=== PATIENT | female | born 1955 | race Caucasian/White ===

== ENCOUNTER 2019-07-04 16:09 | Inpatient (IN) ==
[2019-07-04] MEDS ORDERED: Isovue-370 500 ML BOTTLE IVP ONE ×4 (16:28→17:21)
[2019-07-04] MEDS ORDERED: *HR* FentaNYL (PF) 100 MCG/2 ML VIAL IVP ONE (18:14)
--- NOTE | 2019-07-04 18:24 | Emergency Department Note ---
Disposition Clinical Impression: Femoral artery pseudo-aneurysm, right, Occlusion of right femoral artery Disposition: Admitted As Inpatient Condition: Fair Time of Disposition: 19:45 General Adult HPI - General Chief complaint: ED Extremity Injury, Lower Stated complaint: "dvt" Time Seen by Provider: 07/04/19 16:12 Source: patient, EMS Mode of arrival: EMS Limitations: no limitations Nursing Notes Reviewed: Yes Vital Signs Reviewed: Yes - History of Present Illness HPI Narrative: 63F who is currently a patient of Dr. Kruger as she has extensive vascular history presents to the emergency department with concerns for acute embolism in her right lower extremity. Patient states she was feeling fine today until she suddenly had numbness and pain of her right lower extremity. She has a known femoral aneurysm and is awaiting surgery on this. She has also had femorofemoral bypass surgery. She was seen in an outside hospital who did basic lab work on her and transferred her here for further vascular evaluation. Patient still has numbness of her right lower extremity. She is able to move her leg but this causes her pain. Pain Scale: 4 - Related Data Home Medications Medication Instructions Recorded Confirmed Ezetimibe [Zetia] 10 mg PO QPM 08/02/16 07/04/19 Gabapentin [Neurontin] 600 mg PO TID 08/02/16 07/04/19 Loratadine [Allergy Relief] 10 mg PO DAILY 08/02/16 07/04/19 Rivaroxaban [Xarelto] 20 mg PO QPM 08/02/16 07/04/19 SUMAtriptan Succinate [Imitrex] 100 mg PO DAILY PRN 08/28/17 07/04/19 Oxybutynin [Ditropan] 5 mg PO BID 11/11/18 07/04/19 Aspirin [Lo-Dose Aspirin EC] 81 mg PO QPM 07/04/19 07/04/19 Calcium Carbonate/Vitamin D3 1 each PO BID 07/04/19 07/04/19 [Calcium 600 + Vit D Tablet] Previous Rx's Medication Instructions Recorded Tamoxifen Citrate 20 mg PO DAILY #30 tab 02/22/19 Allergies Allergy/AdvReac Type Severity Reaction Status Date / Time meperidine [From Demerol] AdvReac Nausea Verified 07/04/19 19:23 All systems ED: reviewed and negative except as stated. Review of Systems: As Per HPI Constitutional: Denies: fever, chills, weakness Cardiovascular: Denies: chest pain, palpitations, dyspnea on exertion Respiratory: Denies: cough, dyspnea, wheezes Gastrointestinal: Denies: abdominal pain, nausea, vomiting Musculoskeletal: Reports: other (Right lower extremity numbness). Denies: back pain, neck pain Past Medical History - Past Medical History Attestation: Yes The following information was validated with the patient. Source: patient Medical history: Reports: asthma, DVT, hyperlipidemia, migraine Surgical history: Reports: cholecystectomy Psychiatric history: Reports: no psych history - Social History Smoking Status: Never smoker Alcohol use: Reports: occasionally Drug use: Reports: none Physical Exam - General Limitations: no limitations General appearance: alert, in no apparent distress - Head Head exam: atraumatic, normocephalic - Eye Eye exam: Present: normal appearance, EOMI - Chest Chest inspection: Present: normal inspection. Absent: tenderness, rash - Respiratory Respiratory exam: Present: normal lung sounds bilaterally. Absent: wheezes - Cardiovascular Cardiovascular exam: Present: regular rate, normal rhythm - Abdominal Exam Abdominal exam: Present: soft, Non-Tender. Absent: distention, guarding, bear ound, rigidity - Extremities Exam Extremities exam: Present: other (Right lower extremity is cool to touch when compared to left lower shortly. Dorsalis pedis and posterior tibial pulses are not detected via Doppler. The popliteal artery has a monophasic waveform. Patient is able to wiggle her toes and does have delayed capillary refill.) - Neurological Exam Neurological exam: Present: alert, oriented X3 - Psychiatric Psychiatric exam: Present: normal affect, normal mood - Skin Skin exam: Present: warm, dry, intact Course Vital Signs Temperature 98.1 F 07/04/19 16:17 Pulse Rate 76 07/04/19 16:17 Respiratory Rate 17 07/04/19 16:17 Blood Pressure 152/99 07/04/19 16:17 O2 Sat by Pulse Oximetry 97 07/04/19 16:17 Temperature 98.1 F 07/04/19 16:17 Pulse Rate 70 07/04/19 18:32 Respiratory Rate 17 07/04/19 18:32 Blood Pressure 142/81 07/04/19 18:32 O2 Sat by Pulse Oximetry 98 07/04/19 18:32 Oxygen Delivery Oxygen Delivery Room Air Medical Decision Making - [facility] Narrative Medical decision making narrative: Patient presents as a transfer from an outside facility with concerns for possible embolism in her right lower extremity. Lab work obtained at previous hospital showed a normal CMP, PT of 15.4, INR of 1.3, and a normal CBC. We will obtain a CTA of the bilateral lower extremities and consult with our vascular surgeon. 1729 - spoke with Dr. Alvarez is requesting a CT aortogram with runoff. Unfortunately the patient has guarding on to CAT scan and had the CTA of the right lower extremity performed and cannot receive any more contrast at this time. 1844 - spoke with Dr. Saini from [facility] radiology who states patient has a new femorofemoral bypass and common femoral occlusion. Dr. Alvarez has been paged again to discuss these results. 1931 - Spoke with Dr. Alvarez who states the pt will likely need to go to surgery tomorrow but she does still have some blood flow to the right lower shortly and does not need to go emergently tonight. He states she needs to have her Xarelto held and be converted over to heparin. She also needs a cardiology consult as she had an abnormal stress test. He suggests admission to the hospital with consultation to vascular and cardiology and to have the patient be placed nothing by mouth after midnight therefore she could not possibly have surgery in the morning. 1944 - pt was accepted by Dr. Mcnulty - Medical Records Medical records reviewed: Yes I reviewed the patient's medical records. - Lab Data Lab results reviewed: Yes I reviewed the patient's lab results. Result diagrams: 07/04/19 20:08 - Radiology Data Radiology results reviewed: Yes I reviewed the patient's radiology results. Attestation Statement - Attestation Attestation: I, Juan Fowler, examined this patient and my medical decision-making was reviewed with the DEALER SUPPORT TECHNICIAN/PA/Advanced Practice Nurse/Resident Physician. I agree with the d ocumented findings, disposition and treatment plan as described except to the extent set forth below. 63-year-old female presents emergency department from [place] emergency department for further evaluation of right lower extremity pain and paresthesias. Patient has a history of arterial occlusion. She has a femorofemoral bypass and apparently has a right femoral artery aneurysm which is being evaluated by Dr. Kruger. Patient states around 4 hours prior to arrival she developed pain to the right lower extremity. It was acute in onset, she feels the right lower extremity is cold or the left. She has had similar arterial occlusions in the past. Patient denies recent trauma. There is no recent chest pain, shortness of breath, abdominal pain. Patient does have a history of abnormal stress test and she states that she was scheduled for a heart catheterization within the next 2 weeks. Patient does not have a dopplerable pulse on the right dorsalis pedis or posterior tibial. There is a faint monophasic pulse in the right popliteal region. Left lower extremity has palpable pulses in the dorsalis pedis and the posterior tibial areas. The vascular surgeon was contacted immediately after the patient's initial arrival. We obtained a CT angiograms of the right and left lower extremity as well as TRUMAN of the right lower extremity. Patient has severe disease present with TRUMAN. CT shows occlusion of the major vasculature however she does have collateral flow. We again spoke with the vascular surgeon, Dr. Alvarez, who recommended heparin and admission to the hospitalist for further evaluation. Patient is on Xarelto however her last dose was last night and she will be started on heparin right now in the emergency department. Patient is comfortable with this plan of act ion.
[2019-07-04] MEDS ORDERED: *HR* Heparin 5,000 UNIT/ML VIAL IVP ONE (19:49)
[2019-07-04] MEDS ORDERED: *HR* Heparin 5,000 UNIT/ML VIAL IVP PRN (19:49)
[2019-07-04] MEDS: Heparin 25,000 UNIT/250 ML D5W 25,000 UNIT/250 ML IV.SOLN IVC SCH (20:19)
[2019-07-04 20:36] LABS: Hematocrit 39.9 % (35.3-44.9); Hemoglobin 12.3 g/dL (11.5-15.4); Mean Corpuscular HGB Conc 30.8 g/dL (31.6-35.5); Mean Corpuscular Hemoglobin 24.2 pg (28.0-33.3); Mean Corpuscular Volume 78.5 fL (83.0-100.0); Mean Platelet Volume 9.3 fL (9.4-12.4); Platelet Count 185 K/mcL (140-400); Red Blood Count 5.08 M/mcL (3.82-4.97); Red Cell Distribution Width 16.2 % (11.5-14.5)
[2019-07-04] MEDS ORDERED: Naloxone 0.4 MG/ML INJ IVP PRN (20:44)
[2019-07-04 20:47] LABS: Heparin anti-factor XA UFH 0.61 IU/mL (0.30-0.70)
[2019-07-04 20:48] LABS: INR 1.1; Prothrombin Time 12.9 Seconds (9.4-12.1)
--- NOTE | 2019-07-04 20:59 | Internal Med History&Physical ---
Date of Encounter: 07/04/19 Time of Encounter: 21:10 Internal Medicine - H&P: HPI Chief complaint: Left lower extremity arterial occlusion Admitted From: Emergency Dept Plans for Post Hospital Care: Home History of present illness: Ms. Lynch is a 63 year old female Patient presented emergency department with pain in her right leg. She states that she had been sitting on the couch earlier in the day, playing games on the phone and petting her dog and cat. After a period time, she got up to walk her dog and she had immediate pain in her right leg. She tried to go walk her dog but says that she could barely make it across the street. She contacted her daughter so that she could be driven to the hospital. She had initially presented to [facility], and had labs performed. She was transferred to [facility] emergency department for further imaging. Emergency department vitals signs: Temperature 98.1, pulse 76, respiratory rate 17, blood pressure 152/99, O2 saturation 97% on room air. [place] labs: CBC: White count 5.4, hemoglobin 12.6, hematocrit 39, platelets 201 CMP: Sodium 138, potassium 4.0, chloride 106, carbon dioxide 21, BUN 13, creatinine 0.91, glucose 116 AST 22 ALT 21 Alkaline phosphatase 51 PTT 30.6 PT 15.4 INR 1.3 [place] labs: CBC: White count 6.0, hemoglobin 12.3, hematocrit 39.9, platelets 185 INR 1.1 PT 12.9 Heparin X a 0.61 Troponin undetectable TRUMAN was completed showed severe arterial disease, 0.39 in the right lower extremity and left lower extremity was normal at 1.16. Right lower extremity CT angiogram: 1010 bypass graft and right common femoral artery occlusion, unchanged right common iliac pseudoaneurysm. The left lower extremity showed full patency. Prior to transfer, patient received 30 mg of ketorolac. She also has a history of abnormal stress test, and will need cardiology clearance. [facility] emergency department contacted Dr. Alvarez, he stated that patient will likely need to go to surgery, but no emergent procedure necessary at this time. The patient had been on Xarelto for history of blood clots in her legs. Her last dose was in the morning. She will be started on heparin drip.due to patient's abnormal stress test, she will need to be evaluated by cardiology prior to surgery. Upon my evaluation, patient is resting comfortably in hospital bed in no acute distress. Her family is at bedside. She denies chest pain, abdominal pain, nausea, vomiting, diarrhea and constipation. She has had occasional chest discomfort over the last few weeks. Her stress test was performed approximately 5 days ago. The stress test showed positive ischemia, small sized reversible perfusion defect. She was scheduled to have a cardiac catheter performed this coming week. Patient denies history of diabetes, smoking, alcohol and other drug use. She does have a history of breast cancer, and is currently on tamoxifen. She is a full code. She denies significant family medical history. Past Med Surg Social Fam HX - Past Medical History Medical history: asthma, DVT, hyperlipidemia, migraine Additional medical history: Breast Ca Psychiatric history: no psych history - Past Surgical History Surgical History: cholecystectomy Additional surgical history: left shoulder scope. fem fem bypass. double mastectomy. skin graft left arm - Social History Smoking Status: Never smoker Alcohol use: occasionally Drug use: none Internal Medicine - H&P: Meds Ezetimibe [Zetia] 10 mg PO QPM 08/02/16 [History] Gabapentin [Neurontin] 600 mg PO TID 08/02/16 [History] Loratadine [Allergy Relief] 10 mg PO DAILY 08/02/16 [History] Rivaroxaban [Xarelto] 20 mg PO QPM 08/02/16 [History] SUMAtriptan Succinate [Imitrex] 100 mg PO DAILY PRN 08/28/17 [History] Oxybutynin [Ditropan] 5 mg PO BID 11/11/18 [History] Tamoxifen Citrate 20 mg PO DAILY #30 tab 02/22/19 [Rx] Aspirin [Lo-Dose Aspirin EC] 81 mg PO QPM 07/04/19 [History] Calcium Carbonate/Vitamin D3 [Calcium 600 + Vit D Tablet] 1 each PO BID 07/04/19 [History] Allergy/AdvReac Type Severity Reaction Status Date / Time meperidine [From Demerol] AdvReac Nausea Verified 07/04/19 19:23 All Systems PM: A 10-system review of systems was performed and is negative for pertinent find ings except as documented above in the HPI. - Constitutional Vitals: Temp Pulse Resp BP Pulse Ox 98.5 F 86 20 167/81 97 07/04/19 20:33 07/04/19 19:22 07/04/19 20:33 07/04/19 20:33 07/04/19 19:22 General appearance: Present: cooperative, A&O X 3, pleasant, no acute distress, answers questions appropriately Exam: - - Head Head exam: Present: normal inspection - Eye Eye exam: Present: EOMI, normal appearance - Respiratory Respiratory exam: Present: CTAB. Absent: rales, respiratory distress, rhonchi, wheezes - Cardiovascular Cardiovascular exam: Present: RRR. Absent: diastolic murmur, systolic murmur - GI/Abdominal GI/Abdominal exam: Present: normal bowel sounds, soft. Absent: tenderness - Extremities Exam Extremities exam: Present: radial pulses palpable and symmetrical. Absent: pedal edema, tenderness, warm Additional comments: Left lower extremity warm compared to right lower extremity which feels cold to the touch. Not cyanotic, minimal pulse felt in right lower extremity compared to left. Normal sensation, normal range of motion in both lower extremities. - Neurological Exam Neurological exam: Present: no focal deficits, strengths equal and symetr throughout. Absent: motor sensory deficit, facial droop, speech deficit - Skin Skin exam: Present: dry, normal color, warm Internal Med - H&P Results - Labs CBC & Chem 7: 07/04/19 20:08 Labs: Short CBC 07/04/19 Range/Units 20:08 WBC 6.0 (4.3-11.1) K/mcL Hgb 12.3 (11.5-15.4) g/dL Hct 39.9 (35.3-44.9) % Plt Count 185 (140-400) K/mcL Cardiac Enzymes 07/04/19 Range/Units 20:08 Troponin I < 0.03 (< 0.04) ng/mL - Impressions ITS Impressions Lower Extremity CTA 07/04/19 18:21 IMPRESSION: Fem-fem bypass graft and right common femoral artery occlusion, new since May. Unchanged right common iliac pseudoaneurysm. D/ / 07/04/2019 18:47:59 Janes Russo MD / erinrtvictor manuel Interpreting Provider: Janes Russo MD Lower Extremity CTA 07/04/19 18:21 IMPRESSION: Fem-fem bypass graft and right common femoral artery occlusion, new since May. Unchanged right common iliac pseudoaneurysm. D/ / 07/04/2019 18:47:59 Janes Russo MD / leslye Interpreting Provider: Janes Russo MD - Assessment and Plan (1) Occlusion of right femoral artery Current Visit: Yes Status: Acute Assessment and plan: As seen on CT angiogram of the right lower extremity. Patient has a femorofemoral bypass graft and right common femoral artery occlusion that is new since May. Dr. Alvarez was consulted by the emergency department. Will see the patient in the morning. Nothing by mouth after midnight Heparin drip Cardiology consult Cardiac telemetry Repeat a.m. labs Pain management as needed Follow-up vascular surgery recommendations Follow-up cardiology recommendations (2) Abnormal stress test Current Visit: Yes Status: Acute Assessment and plan: Stress test performed on June 30, 2019: Impression: Perfusion imaging was positive for ischemia. There is a small sized reversible perfusion defect which is mild in intensity in the mid and basal inferior segments. SDS = 2 Pharmacologic stress ECG is borderline for ischemia in leads II, III, aVF, V4-V6. The patient demonstrated a blunted blood pressure response. Gated EF > 70%. Cardiology consult in the morning Nothing by mouth after midnight Cardiac monitoring Initial troponin undetectable, repeat troponin in the morning. Patient denies chest pain EKG in the morning (3) Invasive lobular carcinoma of left breast, stage 2 Current Visit: No Status: Acute Assessment and plan: Continue home meds (4) DVT prophylaxis Current Visit: Yes Status: Acute Assessment and plan: Patient on heparin drip. Hold home Xarelto - Time Spent With Patient Total time spent is greater than 50% in coordination of care (as documented) at patient's floor/unit and/or counseling patient:
[2019-07-05 04:15] LABS: Hematocrit 37.8 % (35.3-44.9); Hemoglobin 11.6 g/dL (11.5-15.4); Mean Corpuscular HGB Conc 30.7 g/dL (31.6-35.5); Mean Corpuscular Hemoglobin 24.6 pg (28.0-33.3); Mean Corpuscular Volume 80.3 fL (83.0-100.0); Mean Platelet Volume 9.8 fL (9.4-12.4); Platelet Count 168 K/mcL (140-400); Red Blood Count 4.71 M/mcL (3.82-4.97); Red Cell Distribution Width 16.5 % (11.5-14.5); White Blood Count 5.2 K/mcL (4.3-11.1)
[2019-07-05 04:34] LABS: Alanine Aminotransferase 16 Units/L (7-52); Albumin 3.4 g/dL (3.5-5.7); Albumin/Globulin Ratio 1.4 (1.1-2.2); Alkaline Phosphatase 44 Units/L (34-104); Aspartate Amino Transferase 16 Units/L (13-39); BUN/Creatinine Ratio 19 (6-26); Bilirubin,Total 0.2 mg/dL (0.3-1.0); Blood Urea Nitrogen 17 mg/dL (8-23); Calcium 8.4 mg/dL (8.6-10.3); Carbon Dioxide 23 mEq/L (23-29); Chloride 110 mEq/L (98-107); Globulin 2.4 g/dL (2.4-3.5); Glucose 122 mg/dL (70-105); Osmolality,Calculated 291 (280-300); Phosphorous 4.1 mg/dL (2.7-4.5); Potassium 3.9 mEq/L (3.5-5.1); Sodium 139 mEq/L (136-145); Total Protein 5.8 g/dL (6.4-8.9); eGFR For African Americans > 60 (> 60); eGFR For Non-African Americans > 60 (> 60)
--- NOTE | 2019-07-05 08:15 | Internal Med Progress Note ---
Hospitalist Progress Note - Encounter Date of Encounter: 07/05/19 Time of Encounter: 08:15 - Subjective Interval History: Patient lying comfortably in bed, denies acute overnight events. At rest denies any leg pain, numbness/tingling, or color changes to leg. Can still move leg/toes. She says pain began rather intensely and suddenly last night prompting ER visit. She says had a stress test last which was abnormal for which [facility] planned for next week. - Exam Vitals: Temp Pulse Resp BP Pulse Ox 98.1 F 59 18 149/86 97 07/05/19 07:03 07/05/19 07:03 07/05/19 07:03 07/05/19 07:03 07/05/19 07:03 Exam: General: NAD, good eye contact, well appearing Thoracic: Normal breath sounds b/l, no wheezing or crackles Cardio: Normal S1 and S2, regular rate and rhythm, no murmurs Abdomen: Soft, nontender, nondistended, obese Extremities: Warm. DP pulses 2+ LLE, not palpable on RLE. Does have pitting edema through b/l legs. Notably, significantly decreased radial pulse LUE Skin: Intact. No rashes, bruises, or ulcers Neuro: Awake, fully oriented. Speech fluent - Summary of Assessment and Plan Summary of Assessment and Plan: Ellen Lynch is a 63 F w hx PAD s/p fem-fem bypass, DVT on AC, CAD, HLD, BrCa on tamoxifen, who p/w RLE pain, CTA RLE showing new R common fem arterial occlusion. Occlusion of R fem artery: seen on CTA, diminished but not absent TRUMAN, and pulses faint but present on doppler, without cyanosis - VascSurg consulted - hep gtt - pain control as needed to include home gabapentin 600 tid - home ASA - not on statin but takes zetia CAD/HLD: abnormal stress test - Cardio consulted; rec proceed with any emergency surgery if needed, and otherwise can pursue inpatient [facility] if vascular surgery is not emergent Breast cancer: home tamoxifen DVT: holding AC and using hep gtt Obesity: BMI 36 PPx: hep gtt, holding home xarelto Tele: yes Activity: up ad tommy FEN: NPO, no MIVF Lines: PIV Consults: Cardio, VascSurg Code: Full Dispo: patient requires inpatient eval and management at this time, anticipate 2-3 days, will be homegoing Internal Medicine: Result - Labs CBC & Chem 7: 07/05/19 04:03 07/05/19 04:03 Labs: Short CBC 07/04/19 07/05/19 Range/Units 20:08 04:03 WBC 6.0 5.2 (4.3-11.1) K/mcL Hgb 12.3 11.6 (11.5-15.4) g/dL Hct 39.9 37.8 (35.3-44.9) % Plt Count 185 168 (140-400) K/mcL BMP 07/05/19 04:03 Sodium 139 Potassium 3.9 Chloride 110 H Carbon Dioxide 23 BUN 17 Creatinine 0.89 Glucose 122 H Calcium 8.4 L Cardiac Enzymes 07/04/19 07/05/19 Range/Units 20:08 04:03 Troponin I < 0.03 < 0.03 (< 0.04) ng/mL Liver Function 07/05/19 Range/Units 04:03 Total Bilirubin 0.2 L (0.3-1.0) mg/dL AST 16 (13-39) Units/L ALT 16 (7-52) Units/L Alkaline Phosphatase 44 (34-104) Units/L Albumin 3.4 L (3.5-5.7) g/dL - ABG Interpretation ABG results: PT/INR, D-dimer PT 12.9 Seconds (9.4-12.1) H 07/04/19 20:08 - Impressions Impressions Lower Extremity CTA 07/04/19 18:21 IMPRESSION: Fem-fem bypass graft and right common femoral artery occlusion, new since May. Unchanged right common iliac pseudoaneurysm. D/ / 07/04/2019 18:47:59 Janes Russo MD / leslye Interpreting Provider: Janes Russo MD Lower Extremity CTA 07/04/19 18:21 IMPRESSION: Fem-fem bypass graft and right common femoral artery occlusion, new since May. Unchanged right common iliac pseudoaneurysm. D/ / 07/04/2019 18:47:59 Janes Russo MD / leslye Interpreting Provider: Janes Russo MD Consult Discharge Plan - Plan Referrals: Bernie Roberts, DEVELOPMENT CHEMIST [Primary Care Provider] -
--- NOTE | 2019-07-05 10:49 | Cardiology Consult Note ---
<CorneliusMirtaKeila J - Last Filed: 07/05/19 10:35> Date of Encounter: 07/05/19 Time of Encounter: 09:00 Assessment and Plan (1) Preop cardiovascular exam Current Visit: Yes Status: Acute Per cardiology: -Preop risk assessment for vascular surgery. -Stress test 06/30/19 with small sized, reversible perfusion defect, which is mild in intensity in mid and basal inferior segments, borderline ECG changes with pharmacologic stress. -No recent TTE. -ECG with SR. No acute ischemic changes noted. -No previous LHC. Was planned for outpatient LHC for preop. -Reports atypical chest pain symptoms. -Poor functional capacity, unable to achieve 4 METs. -Discussed and reviewed with , if surgery is emergent, would recommend proceeding with surgery with the knowledge of increased risk of cardiovascular complications in the anny-operative time frame. If surgery can be delayed, can consider [facility] inpatient. Discussed and reviewed with patient and family. -Will check TTE. (2) Abnormal stress test Current Visit: Yes Status: Acute Per cardiology: -Known abnormal stress test. -See preop cardiovascular exam. Discussion w patient/family: The assessment and plan as outlined above was discussed with the patient and/or family members who expressed understanding and agreement. All questions were answered. Thank you for involving us in the care of your patient. Please call with any questions. Discussed and reviewed with . History of Present Illness Consult date: 07/04/19 Requesting physician: Monica Knapp Consult reason: abnormal stress test Chief complaint: leg pain History of present illness: Ms. Lynch is a 63 year old female with a relevant past medical history of PAD s/p fem-fem bypass with graft thrombosis, neuropathy, HLD, breast cancer s/p bilateral mastectomy, who presented to [facility] with complaints of acute leg pain. Patient was being worked up for outpatient surgery, however patient states yesterday she had acute onset of leg pain. States yesterday morning she was fine and then pain started while she was sitting on the couch. Patient admits to intermittent chest "Achiness" over the past several months. Patient states symptoms do not always correlate to exertion. States symptoms last sometimes for a few minutes up to several hours. Patient reports she has not had any chest achiness for 3 weeks. Denies current chest pain. Denies shortness of breath. Reports poor functional capacity due to claudication. Past Med Surg Social Fam HX - Past Medical History Attestation: Yes The following information was validated with the patient. Source: patient, old records reviewed Medical history: asthma, DVT, hyperlipidemia, migraine Additional medical history: Breast Ca Psychiatric history: no psych history - Past Surgical History Surgical History: cholecystectomy Additional surgical history: left shoulder scope. fem fem bypass. double mastectomy. skin graft left arm\\. knee surger, gallbladder, tubal - Social History Smoking Status: Never smoker Smokeless Tobacco Status: No Alcohol use: occasionally Drug use: none - Family History Mother Hx Family Cancer: Yes (Cervical) Hx Family Endocrine Disorder: Yes (DM) Father Cause of : Prostate Cancer Medications and Allergies Ezetimibe [Zetia] 10 mg PO QPM 08/02/16 [History] Gabapentin [Neurontin] 600 mg PO TID 08/02/16 [History] Loratadine [Allergy Relief] 10 mg PO DAILY 08/02/16 [History] Rivaroxaban [Xarelto] 20 mg PO QPM 08/02/16 [History] SUMAtriptan Succinate [Imitrex] 100 mg PO DAILY PRN 08/28/17 [History] Oxybutynin [Ditropan] 5 mg PO BID 11/11/18 [History] Tamoxifen Citrate 20 mg PO DAILY #30 tab 02/22/19 [Rx] Aspirin [Lo-Dose Aspirin EC] 81 mg PO QPM 07/04/19 [History] Calcium Carbonate/Vitamin D3 [Calcium 600 + Vit D Tablet] 1 each PO BID 07/04/19 [History] Allergy/AdvReac Type Severity Reaction Status Date / Time meperidine [From Demerol] AdvReac Nausea Verified 07/04/19 19:23 All Systems Review: The remainder of the systems were reviewed and are negative - Cardiovascular Cardiovascular: as per HPI, chest pain at rest, chest pain with exertion Physical Examination Vital Signs, Last 4 Hours Temp Pulse Resp BP Pulse Ox 07/05/19 07:03 98.1 F 59 18 149/86 97 General: Conversant, No Apparent Distress HEENT: Atraumatic, Normocephaly, Mucus Membranes Moist Neck: No JVD, Normal carotid pulses Cardiac: Reg Rate and Rhythm, Normal S1 and S2, No Murmur Lungs: Normal Breath Sounds, No Wheeze, Rales, Rhonchi Neuro: Alert and responsive, No focal deficits noted Abdomen: Soft, Non-Tender Skin: No rashes noted on visualized skin Musculoskeletal: No Chest Wall Tenderness Extremities: No Clubbing, No Cyanosis, No Edema, Other (Right lower extremity pulses dimininished. ) Results 07/05/19 04:03 07/05/19 04:03 Lab Results Impressions Lower Extremity CTA 07/04/19 18:21 IMPRESSION: Fem-fem bypass graft and right common femoral artery occlusion, new since May. Unchanged right common iliac pseudoaneurysm. D/ / 07/04/2019 18:47:59 Janes Russo MD / erinrtvictor manuel Interpreting Provider: Janes Russo MD Lower Extremity CTA 07/04/19 18:21 IMPRESSION: Fem-fem bypass graft and right common femoral artery occlusion, new since May. Unchanged right common iliac pseudoaneurysm. D/ / 07/04/2019 18:47:59 Janes Russo MD / erinrtvictor manuel Interpreting Provider: Janes Russo MD Active Medications Heparin Sodium (Porcine) (Heparin) 5,400 unit 70 unit/kg (5400 unit) IVP Q6HR PRN PRN Reason: SEE COMMENTS Stop: 01/03/20 19:50 Heparin Sodium (Porcine) (Heparin) 2,700 unit 35 unit/kg (2700 unit) IVP Q6H PRN PRN Reason: SEE COMMENTS Stop: 01/03/20 19:50 Heparin Sodium/Dextrose (Heparin 25,000 Unit/250 Ml D5w) 25,000 unit in 250 mls @ 10.77 mls/hr IVC .[id number] MALIHA; Protocol Stop: 01/03/20 20:01 Last Titration: 07/05/19 03:42 Dose: 11 unit/kg/hr, 8.5 mls/hr Documented by: Naloxone HCl (Narcan) 0.4 mg IVP Q2MPRN PRN PRN Reason: SEE COMMENTS Stop: 01/03/20 20:45 Oxycodone HCl (Oxycodone Oral Conc) 5 mg SL Q4H PRN; Protocol PRN Reason: mild to moderate pain Stop: 01/03/20 21:38 Oxycodone HCl (Oxycodone Oral Conc) 10 mg SL Q4H PRN; Protocol PRN Reason: Severe Pain Stop: 01/03/20 21:38 Last Admin: 07/04/19 21:57 Dose: 10 mg Documented by: Laboratory Tests 07/04/19 07/05/19 07/05/19 20:08 04:03 04:03 Hgb 11.6 Creatinine 0.89 Troponin I < 0.03 07/05/19 04:03 Hgb Creatinine Troponin I < 0.03 - Imaging and Cardiology Chest Xray: report reviewed Stress Test: report reviewed Echo: pending - EKG Interpretation EKG results cardiology: personally reviewed (ECG with SR, HR 75.), other (Telemetry reviewed with average HR previous 12 hours noted to be 69, SR. PVCs, PACs noted.) Consult Discharge Plan - Plan Referrals: Bernie Roberts, DRAW PRESS OPERATOR [Primary Care Provider] - <Terry Benjamin - Last Filed: 07/05/19 21:32> Date of Encounter: 07/05/19 - Attending Attestation I have personally performed a face to face evaluation on this patient. I have reviewed and agree with the documented findings and care plan as documented by the DRAW PRESS OPERATOR. History and Exam by me shows: 63-year-old pleasant female with history of vascular disease admitted for atherosclerosis of right lower extremity with rest pain. Recent stress test showed mild perfusion defects in the mid and basal inferior segments with SDS of 2. Left heart catheterization today shows mild CAD. Patient is at acceptable risk for planned vascular intervention on the right lower extremity. Thanks for the consult, please call with questions. Terry Benjamin MD FAC Assessment and Plan Discussion w patient/family: The assessment and plan as outlined above was discussed with the patient and/or family members who expressed understanding and agreement. All questions were answered. Thank you for involving us in the care of your patient. Please call with any questions. History of Present Illness History of present illness: Ms. Lynch is a 63 year old female All Systems Review: The remainder of the systems were reviewed and are negative Physical Examination Vital Signs, Last 4 Hours Temp Pulse Resp BP Pulse Ox 07/05/19 19:37 98.9 F 78 16 169/80 95 07/05/19 18:48 98.8 F 79 16 167/89 95 07/05/19 18:15 98.8 F 77 16 166/88 94 07/05/19 18:00 98.8 F 78 17 162/90 96 07/05/19 17:45 98.8 F 79 17 144/79 96 07/05/19 17:30 98.8 F 61 16 159/81 96 Results 07/05/19 04:03 07/05/19 04:03 Lab Results 07/05/19 07/05/19 07/05/19 04:03 04:03 04:03 WBC 5.2 Hgb 11.6 Hct 37.8 Plt Count 168 Sodium 139 Potassium 3.9 Chloride 110 H Carbon Dioxide 23 BUN 17 Creatinine 0.89 Glucose 122 H Calcium 8.4 L Magnesium 2.0 Total Bilirubin 0.2 L AST 16 ALT 16 Alkaline Phosphatase 44 Troponin I < 0.03
[2019-07-05] MEDS: Gabapentin 300 MG CAPSULE PO SCH ×2 (15:06→20:40)
[2019-07-05] MEDS ORDERED: 0.9 % Sodium Chloride 500 ML ONE (15:26)
[2019-07-05] MEDS ORDERED: Verapamil 5 MG/2 ML VIAL ONE (15:36)
[2019-07-05] MEDS ORDERED: *HR* Heparin 10,000 UNIT/10 ML VIAL ONE (15:37)
[2019-07-05] MEDS ORDERED: 0.9 % Sodium Chloride 1,000 ML ONE ×2 (15:37→16:18)
[2019-07-05] MEDS ORDERED: Nitroglycerin 1,000 MCG/10 ML VIAL IV ONE (15:37)
[2019-07-05] MEDS ORDERED: Heparin 1,000 UNITS/500 mL 500 ML ONE (15:37)
--- NOTE | 2019-07-05 15:48 | Pre-Sedation Evaluation ---
Pre-sedation evaluation - Pre-sedation checklist Date of procedure: 07/05/19 Procedure: [facility] Recent Vitals: Last Vital Signs Temp 98.1 F 07/05/19 11:10 Pulse 75 07/05/19 11:10 Resp 18 07/05/19 11:10 BP 147/71 07/05/19 13:38 Pulse Ox 98 07/05/19 11:10 H&P (including ROS) documented in medical record: Yes Previous reaction to sedatives/anesthetics: No Dietary Status: NPO after Midnight Dentition: dentures removed ASA Classification *see protocol: CLASS II-Mild systemic disease Plan of Care: Pt appropriate candidate for procedure/moderate/conscious sedation, Risks/benefits of procedure/sedation discussed w/ patient/family Cardiac Registry (Cardio Only) - Functional Capacity Functional Capacity: >=4 METS with symptoms - Clincal Frailty Scale Clinical Frailty Scale: Managing Well
--- NOTE | 2019-07-05 16:13 | Vascular/Endovasc Consult Note ---
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 She has an occluded femoral-femoral artery bypass graft. Ankle-brachial indices are consistent with severe disease. Her right ankle-brachial index is 0.39. Her motor and sensory exam is intact. She has a biphasic right posterior tibial signal. There is no evidence of acute limb threatening ischemia. She will be cleared by cardiology for surgery with plans for resection of her aneurysm and femoral to femoral artery bypass graft thrombectomy tentatively scheduled for Friday. The risks, benefits and alternatives of the procedure were discussed the patient and her family and all questions were answered. The patient expressed understanding wishes to proceed. At this time to remain on a heparin drip. He will need to be held for heart catheterization but should be resumed after her risk of bleeding subsides. 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 This will be resected at the time of for revascularization. The risks, benefits alternatives were discussed AND answered. She expressed understanding wishes to proceed. (3) Coronary artery disease Current Visit: Yes Status: Chronic The patient had an abnormal stress test recently. She denies any chest pain or shortness of breath currently. She will need a left heart catheterization with possible intervention prior to undergoing surgery. Cardiology has been counseled. I spoke with Dr. Benjamin and Dr. Azevedo. Plan for left heart catheterization today. Qualifiers: Coronary Disease-Associated Artery/Lesion type: [place] artery [place] vs. transplanted heart: [place] heart Associated angina: without angina Qualified Code(s): I25.10 - Atherosclerotic heart disease of [place] coronary artery without angina pectoris (4) Mixed hyperlipidemia Current Visit: Yes Status: Chronic The patient was counseled regarding atherosclerotic risk factor reduction. (5) Moderate protein malnutrition Current Visit: Yes Status: Chronic - History of Present Illness Consult date: 07/05/19 Requesting physician: Monica Knapp Consult reason: Peripheral vascular disease with rest pain Chief complaint: Right lower extremity rest pain. History of present illness: Ms. Lynch is a 63 year old female with history of peripheral vascular disease, carotid stenosis, hyperlipidemia, femoral artery aneurysm and coronary artery disease. The patient previously underwent a femoral to femoral artery bypass graft for right lower extremity ischemia in [facility]. The patient has required multiple thrombectomies which were performed in [facility]. The patient the patient was previously being evaluated as an outpatient due to a right femoral artery aneurysm. As part of her evaluation she underwent a stress test which was abnormal. She was scheduled as an outpatient for a left heart catheterization. The patient presented to the emergency room yesterday with complaints of disabling claudication and rest pain in the right lower extremity. She is found have a graft occlusion in addition to her and aneurysm. She was admitted and started on an intravenous heparin drip. Vascular surgery was counseled for further evaluation. At the time of evaluation, the patient is comfortable. She denies any motor or sensory deficit. She denies chest pain or shortness of breath. Past Med Surg Social Fam HX - Past Medical History Medical history: asthma, DVT, hyperlipidemia, migraine Additional medical history: Breast Ca Psychiatric history: no psych history - Past Surgical History Surgical History: cholecystectomy Additional surgical history: left shoulder scope. fem fem bypass. double mastectomy. skin graft left arm\. knee surger, gallbladder, tubal - Social History Smoking Status: Never smoker Smokeless Tobacco Status: No Alcohol use: occasionally Drug use: none - Family History Mother Hx Family Cancer: Yes (Cervical) Hx Family Endocrine Disorder: Yes (DM) Father Cause of : Prostate Cancer Medications and Allergies Ezetimibe [Zetia] 10 mg PO QPM 08/02/16 [History] Gabapentin [Neurontin] 600 mg PO TID 08/02/16 [History] Loratadine [Allergy Relief] 10 mg PO DAILY 08/02/16 [History] Rivaroxaban [Xarelto] 20 mg PO QPM 08/02/16 [History] SUMAtriptan Succinate [Imitrex] 100 mg PO DAILY PRN 08/28/17 [History] Oxybutynin [Ditropan] 5 mg PO BID 11/11/18 [History] Tamoxifen Citrate 20 mg PO DAILY #30 tab 02/22/19 [Rx] Aspirin [Lo-Dose Aspirin EC] 81 mg PO QPM 07/04/19 [History] Calcium Carbonate/Vitamin D3 [Calcium 600 + Vit D Tablet] 1 each PO BID 07/04/19 [History] Allergy/AdvReac Type Severity Reaction Status Date / Time meperidine [From Demerol] AdvReac Nausea Verified 07/04/19 19:23 All Systems Review: The remainder of the systems were reviewed and are negative - Constitutional Constitutional: no chills, no fever(s) - Cardiovascular Cardiovascular: no chest pain at rest, no dyspnea at rest - Gastrointestinal Gastrointestinal: no abdominal pain - Musculoskeletal Musculoskeletal: no back pain Exam Vital Signs, Last 4 Hours BP 07/05/19 13:38 147/71 General: Present: Conversant, No Apparent Distress HEENT: Present: Normocephaly, Pupils equal Neck: Absent: JVD, Lymphadenopathy Cardiac: Present: Reg Rate and Rhythm, Normal S1 and S2 Lungs: Present: Normal Breath Sounds Neuro: Present: Alert and responsive, No focal deficits noted, Motor nerves grossly intact, Sensory nerves grossly intact Abdomen: Present: Soft, Non-tender. Absent: Masses Vascular: Present: Normal capillary refill, Pulse, absent (Right femoral, popliteal and pedal pulses are absent, right pedal signals are weakly biphasic), Pulse, normal (Left femoral, popliteal, dorsalis pedis and posterior tibial pulses). Absent: Cyanosis, Edema Skin: Present: No rashes noted on visualized skin Consult Discharge Plan - Plan Referrals: Bernie Roberts, CONCRETE STONE FINISHER [Primary Care Provider] -
[2019-07-05] MEDS ORDERED: *HR* Midazolam HCl 2 MG/2 ML VIAL ONE (16:18)
[2019-07-05] MEDS ORDERED: *HR* FentaNYL (PF) 100 MCG/2 ML VIAL ONE (16:18)
[2019-07-05] MEDS ORDERED: Nitroglycerin Spray 4.9 GM BOTTLE ONE (16:38)
--- NOTE | 2019-07-05 17:00 | Event Note ---
Date of Encounter: 07/05/19 Time of Encounter: 17:00 - Cardiology Event Note Mild CAD Acceptable int CV risk for int risk surgery
--- NOTE | 2019-07-05 17:10 | Invasive Diagnostic Lab Proc ---
Name: Ellen Lynch Date of Study: 07/05/2019 Date: 1955 Ht: 61.8in Medical Record#: [id number] Age: 63 Wt: 198.42lb Gender: Female BSA: 1.9 Order #: [id number] BMI: 36.51 Physicians Procedure Physician: Nima Azevedo MD, [facility] Referring MD: Referring MD: Staff Name Position Time In AndUlises knapp RN Machine Tender 04:23 PM Franchesca Valenzuela RT (R) Scrub 04:23 PM Mercedes Mas RT (R) Monitor 04:24 PM Aurea Matos RT (R) Scrub 04:24 PM Procedures Performed Procedure L HRT ARTERY/VENTRICLE ANGIO Pre-Procedure Checklist Informed consent is complete signed and on chart. H&P is on chart. ID band is on and ID verified with patient. Patient NPO for procedure The procedure was described for the patient and questions were answered. ECG is on chart. Plan of Care Patient will tolerate the procedure without complications. Adequate level of comfort will be maintained. Hemodynamics will remain stable Patient will recover from procedure without complications. Respiratory function will be maintained. Cardiac rhythm will remain stable. Patient temperature will be maintained. Patient and/or family have verbalized understanding of the procedure. Patient Education Chief Complaint/Reason for Test: Cardiac Cath Developmental Category: Geriatric (65+ years) Developmentally Appropriate for Age: Yes Learning Barriers: None Education Needs: Procedure Education Method: Verbal Information Taught: Cardiac Cath Educational Evaluation: Able to repeat information Intravenous Access Time IV Size Location DC'd Fluid/Drip Rate Units RN 20g 1 /" Patent On Arrival Lt Arm 0.9NaCl Allergies meperidine Vital Signs Time BP (mmHg) HR (bpm) O2 Sat. RR (bpm) LOC 04:22 PM / % 5 = Fully awake and oriented or at pre-proc level 04:22 PM / % 4 = Oriented but drowsy 04:37 PM / % 4 = Oriented but drowsy 04:32 PM 154 / 98 83 93 % 13 04:37 PM 168 / 96 84 95 % 17 04:43 PM 150 / 98 96 93 % 12 04:50 PM 80 / 50 82 94 % 15 04:56 PM 99 / 61 76 88 % 11 Procedural Medications Time Medication Dose Units Method Given By 04:21 PM Oxygen 2 L/min nasal cannula Ulises Esqudea RN 04:25 PM Versed 2 mg Intravenous Ulises Esqueda RN 04:25 PM Fentanyl 50 mcg Intravenous Ulises Esqueda RN 04:37 PM Lidocaine 2% 0.5 ml Subcutaneous Nima Azevedo MD, [facility] 04:38 PM Nitroglycerin 0.4 mcg Sublingual Ulises Esqueda RN 04:43 PM Heparin 2000 units Nitroglycerin 200 mcg Verapamil 2.5 mg Intraarterial Nima Azevedo MD, [facility] 04:47 PM Lidocaine 2% 1 ml Subcutaneous Nima Azevedo MD, [facility] 04:49 PM Heparin 0 units Nitroglycerin 200 mcg Verapamil 2.5 mg Intraarterial Nima Azevedo MD, [facility] ASA Classification: CLASS II- Mild systemic disease (i.e. well-controlled diabetes, hypertension, asthma, cigarette smoking) Mimi Score Preprocedure Postprocedure Activity 2- Moves 4 extremities sustained head lift Activity 2- Moves 4 extremities sustained head lift Circulation 2- SBP +/= 20 points of pre-anesthetic level Circulation 2- SBP +/= 20 points of pre-anesthetic level Consciousness 2- Awake and alert oriented x 3 Consciousness 2- Awake and alert oriented x 3 O2 Saturation 2- Able to maintain O2 satruation of 92% on room air O2 Saturation 2- Able to maintain O2 satruation of 92% on room air Respiratory 2- Able to deep breathe and cough well Respiratory 2- Able to deep breathe and cough well Total Score 10 Total Score 10 Contrast Agent: Isovue Diagnostic Contrast: 41 ml Total Contrast: 41 ml Fluoro Dose: 13 mGy Procedure Log Time Note Enter By 04:18 PM CathStat 04:21 PM Pt arrived to pathology lab technician 2 at 16:21 [facility] PM Physician arrived 16:21 [facility] : PM Meet and greet completed [facility] PM Sign in performed according to hospital policy. Informed consent was obtained. [facility] Time: 16:21 Oxygen on at 2 L/min per nasal cannula by Ulises Esqueda RN [facility] PM Time: 16:22 Patient comfortable and pain free: Yes [facility] Time: 16:22LOC: 5 = Fully awake and oriented or at pre-proc level [facility] 04:22 PM Vitals capture started with the following parameters, Patient=Adult, Interval=5 min, Initial Hhaupjwj=021 mmHg, Deflation Rate=3 mmHg, Cuff placed on Right Arm 04:22 PM Procedure start 16:: PM Hair removed from procedure site in holding area using clippers. Left wrist prepped with Chloraprep by Aurea Matos RT (R), then patient was draped. Skin intact. : PM Vitals capture stopped. : PM ASA Class CLASS II- Mild systemic disease (i.e. well-controlled diabetes, hypertension, asthma, cigarette smoking) : PM Ulises Esqueda RN Position: Machine Tender Time in: :: PM Franchesca Valenzuela RT (R) Position: Scrub Time in: ::24 PM Mercedes Mas RT (R) Position: Monitor Time in: ::24 PM Aurea Matos RT (R) Position: Scrub Time in: 16:24 :24 PM Patient charges- Angio tray pack, Navilyst 3mm J, Pulse Oximetry and ACIST tubing and transducer :24 PM Recorded ECG: HR=92 Condition=Condition 1 04:25 PM Time: 16:25 Versed 2 mg Intravenous Given by Ulises Esqueda RN [facility] 04:25 PM Time: 16:25 Fentanyl 50 mcg Intravenous Given by Ulises Esqueda RN [facility] 04:30 PM Vitals capture started with the following parameters, Patient=Adult, Interval=5 min, Initial Ondftmzm=400 mmHg, Deflation Rate=3 mmHg, Cuff placed on Right Arm 04:31 PM Vitals capture started with the following parameters, Patient=Adult, Interval=5 min, Initial Dybfjcba=206 mmHg, Deflation Rate=3 mmHg, Cuff placed on Right Arm 04:32 PM HR=83 bpm, AONL=031/98 mmhg, SpO2=93.0 %, Resp=13 B/min 04:36 PM Pressure channel 1 zeroed. 04:37 PM Time out was performed according to hospital policy. Conscious sedation and anesthesia was achieved (see medication log with in this report above) 37 PM Time: 16:22LOC: 4 = Oriented but drowsy [email or web address] 04:37 PM Time: 16:22 Patient comfortable and pain free: Yes amilton 04:37 PM HR=84 bpm, POAI=080/96 mmhg, SpO2=95.0 %, Resp=17 B/min 04:38 PM Time: 16:37 .5 ml Lidocaine 2% to left radial Subcutaneous [facility] 04[facility] PM Time: 16:38 Nitroglycerin .4 mcg Sublingual Given by Ulises Esqueda RN jhamil 04:43 PM Time: 16:43 Patient given 2,000 units Heparin, 200 mcg Nitroglycerin, and 2.5 mg Verapamil Intraarterial by Nima Azevedo MD, FAC. This is given to reduce risk of vessel spasm and thrombosis. [email or web address] 04:43 PM Access obtained by percutaneous puncture. 5/6Fr 10cm Terumo Glidesheath sheath placed in left Radial artery. [id number] amilton 04:43 PM HR=96 bpm, ECCM=527/98 mmhg, SpO2=93.0 %, Resp=12 B/min 04:46 PM Prepping right radial access site at this time. [email or web address] 04:47 PM Vitals capture stopped. 04:48 PM Time: 16:47 1 ml Lidocaine 2% to right radial Subcutaneous Given [facility], [facility] 04:[facility] PM Access obtained by percutaneous puncture. 5/6Fr 10cm Terumo Glidesheath sheath placed in right Radial artery. [id number] amilton 04:49 PM Time: 16:49 Patient given 0 units Heparin, 200 mcg Nitroglycerin, and 2.5 mg Verapamil Intraarterial by Nima Azevedo MD, [facility]. This is given to reduce risk of vessel spasm and thrombosis. [email or web address] 04:49 PM 0.035 260cm Navilyst 3mmJ wire [id number] amilton 04:49 PM Vitals capture started with the following parameters, Patient=Adult, Interval=5 min, Initial Umamwrsi=398 mmHg, Deflation Rate=3 mmHg, Cuff placed on Right Arm 04:50 PM Left arterial sheath pulled, Vasc Band closure device used and was Successful S/N. amilton 04:50 PM 10 ml air in Vasc Band. amilton 04:50 PM HR=82 bpm, NIBP=80/50 mmhg, SpO2=94.0 %, Resp=15 B/min 04:51 PM 5Fr FR 4 catheter inserted over the wire DNC jhamil 04:51 PM Recorded Pressure: LV, HR=80, Condition=Condition 1 (Left Ventricle) LV 90/-6/2 04:51 PM Recorded Pressure: LV, Ao, HR=80, Condition=Condition 1 (Left Ventricle) LV 90/14/20, (Aorta) Ao 87/54/69 04:52 PM Time: 16:37 Patient comfortable and pain free: Yes amil 04:52 PM Time: 16:37LOC: 4 = Oriented but drowsy jhamil 04:52 PM RCA angiography performed in multiple views. jhamil 04:52 PM Recorded Pressure: Ao, HR=79, Condition=Condition 1 (Aorta) Ao 85/63/74 04:53 PM LCA angiography performed in multiple views. 04:53 PM FR4 inserted into L coronary. amil 04:53 PM Recorded Pressure: Ao, HR=75, Condition=Condition 1 (Aorta) Ao 85/69/77 04:54 PM Lesion found in 1st Marginal. Pre Stenosis: 20 Pre KAM Flow: 04:55 PM Coronary Dominance: right amil 04:56 PM Catheter removed 04:56 PM HR=76 bpm, NIBP=99/61 mmhg, SpO2=88.0 %, Resp=11 B/min 04:56 PM Procedure completed at 16:56 07/05/2019amil 04:56 PM Did you address KAM flow and Dominance? YesCoronary Dominance: right amil 04:58 PM Sign out completed: Radiation Dose 113.67 mGy, 13.0 Gy/cm2 Fluoro Time: 2.3 Isovue 370 - 200ml contrast 41 ml given by Nima Azevedo MD, [facility]. Complications: None. The patient was discharged out of the optical lab technician in stable condition. Sedation minutes 31. Cardiac Rehab Consult needed: No. Confirmed administered medications: Yes amil 04:58 PM Isovue 370 - 125ml,1 Bottle(s) used. amil 04:58 PM Right arterial sheath pulled, Vasc Band closure device used and was Successful S/N. amil 04:58 PM 10 ml air in Vasc Band. [facility] 04:58 PM Estimated Blood Loss: minimal [facility] 04:58 PM Post ECG NSR amil 04:59 PM Post Blood Pressure 99/61 jhamil 04:59 PM Information taught Cardiac Cath and Vasc Band amil 04:59 PM Education needs Procedure, Plan of Care, and Responsibilities of Patient in Care jhamil 04:59 PM Learning barriers :None [facility] 04:59 PM Education Methods Verbal [facility] 04:59 PM Education evaluation Able to repeat information [facility] 04:59 PM Site status No bleeding/ No Hematoma - Rt Groin as reported by Franchesca Valenzuela RT (R) at 16:59 [facility] 05:02 PM Report given to [place] PERRY Pt taken to 2N Room #9. 17:00 [facility] 05:02 PM Delay to floor No [facility] 05:02 PM Patient out of room: 17:02 [facility] 05:02 PM Family placed in consult room. [facility] Complications Complication None Hemodynamics Pressures Site Systolic/A Wave Diastolic/V Wave Mean LV 90 -6 2 LV 90 14 20 AO 87 54 69 AO 85 63 74 AO 85 69 77 Post Procedure Information Blood Pressure: 99/61 mmHg Rhythm: NSR Post procedural instructions were given Closure Device Time Device Success/Fail 07/05/2019 4:50:00 PM Mechanical Compression Successful 07/05/2019 5:03:00 PM Mechanical Compression Successful Site Checks Time Location Status Staff Sheath In? Note 04:59 PM Rt Groin No bleeding/ No Hematoma Franchesca Valenzuela RT (R) Pulses Time Site Pre-Procedure Post-Procedure Note Bilateral DP & PT None Updated by Mercedes Mas RT (R) on 07/05/2019 5:04:19 PM electronically signed on 07/05/2019 5:04:52 PM with status of Final
[2019-07-05] MEDS: Aspirin Enteric Coated 81 MG Tablet PO SCH (17:42)
[2019-07-05] MEDS: Heparin 25,000 UNIT/250 ML D5W 25,000 UNIT/250 ML IV.SOLN IVC SCH (22:08)
[2019-07-05] MEDS: *HR* Heparin 5,000 UNIT/ML VIAL IVP PRN (22:14)
[2019-07-06 02:09] LABS: Hematocrit 38.2 % (35.3-44.9); Hemoglobin 11.7 g/dL (11.5-15.4); Mean Corpuscular HGB Conc 30.6 g/dL (31.6-35.5); Mean Corpuscular Hemoglobin 24.3 pg (28.0-33.3); Mean Corpuscular Volume 79.3 fL (83.0-100.0); Mean Platelet Volume 9.8 fL (9.4-12.4); Platelet Count 174 K/mcL (140-400); Red Blood Count 4.82 M/mcL (3.82-4.97); Red Cell Distribution Width 16.3 % (11.5-14.5); White Blood Count 5.4 K/mcL (4.3-11.1)
[2019-07-06 02:25] LABS: BUN/Creatinine Ratio 15 (6-26); Blood Urea Nitrogen 11 mg/dL (8-23); Calcium 8.2 mg/dL (8.6-10.3); Carbon Dioxide 22 mEq/L (23-29); Chloride 109 mEq/L (98-107); Glucose 104 mg/dL (70-105); Osmolality,Calculated 284 (280-300); Potassium 3.8 mEq/L (3.5-5.1); Sodium 137 mEq/L (136-145); eGFR For African Americans > 60 (> 60); eGFR For Non-African Americans > 60 (> 60)
[2019-07-06] MEDS: Gabapentin 300 MG CAPSULE PO SCH ×3 (08:02→20:20)
--- NOTE | 2019-07-06 08:20 | Internal Med Progress Note ---
Hospitalist Progress Note - Encounter Date of Encounter: 07/06/19 Time of Encounter: 08:20 - Subjective Interval History: Doing well today, denies acute complaints other than feeling stuck in bed and wanting to get up and walk around. No pain or bruising from cath site. Pt is relieved that there was no CAD. Denies SOB, cough, CP, palpitations, N/V/D. Plan VascSurg intervention tomorrow. - Exam Vitals: Temp Pulse Resp BP Pulse Ox 98.0 F 70 16 144/83 95 07/06/19 03:05 07/06/19 03:05 07/06/19 03:05 07/06/19 03:05 07/06/19 03:05 Exam: General: NAD, good eye contact, well appearing Thoracic: Normal breath sounds b/l, no wheezing or crackles Cardio: Normal S1 and S2, regular rate and rhythm, no murmurs Abdomen: Soft, nontender, nondistended, obese Extremities: Warm. DP pulses 2+ LLE, not palpable on RLE. Does have pitting edema through b/l legs. L radial pulse more medial than expected, less than R but today is definitely palpable Skin: Intact. No rashes, bruises, or ulcers Neuro: Awake, fully oriented. Speech fluent - Summary of Assessment and Plan Summary of Assessment and Plan: Ellen Lynch is a 63 F w hx PAD s/p fem-fem bypass, DVT on AC, HLD, BrCa on tamoxifen, who p/w RLE pain, CTA RLE showing new R common fem arterial occlusion. Occlusion of R fem artery: seen on CTA, diminished but not absent TRUMAN, and pulses faint but present on doppler, without cyanosis - VascSurg consulted - hep gtt - pain control as needed to include home gabapentin 600 tid - home ASA - not on statin but takes zetia HLD: [facility] 07/05 without obstructive CAD, appreciate cardio assistance Diminished radial pulse on left: without any symptoms, pt does report plastic surgery on the area and likely has some scar tissue - arterial duplex LUE ordered Breast cancer: home tamoxifen DVT: holding AC and using hep gtt Obesity: BMI 36 PPx: hep gtt, holding home xarelto Tele: yes Activity: up ad tommy FEN: NPO@MN, no MIVF Lines: PIV Consults: Cardio, VascSurg Code: Full Dispo: patient requires inpatient eval and management at this time, anticipate 2-3 days, will be homegoing Internal Medicine: Result - Labs CBC & Chem 7: 07/06/19 01:31 07/06/19 01:31 Labs: Short CBC 07/06/19 Range/Units 01:31 WBC 5.4 (4.3-11.1) K/mcL Hgb 11.7 (11.5-15.4) g/dL Hct 38.2 (35.3-44.9) % Plt Count 174 (140-400) K/mcL BMP 07/06/19 01:31 Sodium 137 Potassium 3.8 Chloride 109 H Carbon Dioxide 22 L BUN 11 Creatinine 0.73 Glucose 104 Calcium 8.2 L - ABG Interpretation ABG results: PT/INR, D-dimer PT 12.9 Seconds (9.4-12.1) H 07/04/19 20:08 - Impressions Impressions Echocardiogram 07/05/19 14:16 Impressions: LVEF 60-65%. Normal LV chamber size, wall thickness and function. Mild left ventricular diastolic dysfunction. Normal right ventricular structure and function. No evidence of pulmonary hypertension. No significant valvular dysfunction. Left Ventricular Wall Motion: Rest Echo Findings All wall segments showed normal motion. Findings: Study Quality * Technically adequate exam. ECG Findings * Normal sinus rhythm. Left Ventricle * LVEF 60-65%. * Normal LV chamber size, wall thickness and function. * Mild left ventricular diastolic dysfunction. Right Ventricle * Normal right ventricular structure and function. Left Atrium * Normal left atrial size. Right Atrium * Normal right atrial size. Interatrial Septum * Interatrial septum not well evaluated. Aortic Valve * Aortic valve not well visualized. * No aortic regurgitation. * No aortic stenosis. Mitral Valve * Normal mitral valve structure and function. * No mitral regurgitation. * No mitral stenosis. Tricuspid Valve * Normal tricuspid valve structure and function. * Trace tricuspid regurgitation. * No evidence of pulmonary hypertension. Pulmonic Valve * Normal pulmonic valve structure and function. * No pulmonic regurgitation. Aorta * Normally sized aortic root. Pericardium * The pericardium appears normal. IVC * The IVC is not well evaluated. Pulmonary Artery * Normal visualized portions of the main pulmonary artery. Consult Discharge Plan - Plan Referrals: Bernie Roberts, [employer] [Primary Care Provider] - 10/01/19 10:15 am (Please arrive at 1000 AM)
[2019-07-06] MEDS: Heparin 25,000 UNIT/250 ML D5W 25,000 UNIT/250 ML IV.SOLN IVC SCH (08:40)
[2019-07-06] MEDS: *HR* Heparin 5,000 UNIT/ML VIAL IVP PRN (09:43)
--- NOTE | 2019-07-06 09:54 | Vascular/Endovas Progress Note ---
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 The patient previously underwent a femoral to femoral artery bypass graft in 2009. She has a right femoral artery anastomotic aneurysm as well. Her aneurysm as well as her femorofemoral bypass graft is thrombosed. She is currently on a heparin drip. Her right lower extremity is neurovascularly intact and she has a weakly biphasic right posterior tibial signal. The patient is scheduled for a section of her aneurysm and revascularization of her right lower extremity tomorrow. The risks, benefits and alternatives were discussed and all questions were answered. She expressed understanding wishes to proceed. 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 This will be resected at the time of for revascularization. (3) Coronary artery disease Current Visit: Yes Status: Chronic The patient had an abnormal stress test and is undergone a left heart catheterization. She did not require intervention. She is cleared for surgery. Qualifiers: Coronary Disease-Associated Artery/Lesion type: [place] artery [place] vs. transplanted heart: [place] heart Associated angina: without angina Qualified Code(s): I25.10 - Atherosclerotic heart disease of [place] coronary artery without angina pectoris (4) Mixed hyperlipidemia Current Visit: Yes Status: Chronic The patient was counseled regarding atherosclerotic risk factor reduction. (5) Moderate protein malnutrition Current Visit: Yes Status: Chronic - Physical Examination General: Present: Conversant HEENT: Present: Pupils equal Cardiac: Present: Reg Rate and Rhythm, Normal S1 and S2 Lungs: Present: Normal Breath Sounds Neuro: Present: Alert and responsive, Motor nerves grossly intact, Sensory nerves grossly intact Vascular: Present: Normal capillary refill, Pulse, absent (Right femoral, popliteal, dorsalisand posterior tibial pulses), Pulse, normal (Left femoral, popliteal, dorsalis pedis and posterior tibial pulses). Absent: Cyanosis, Edema Abdomen: Present: Soft, Non-tender Skin: Present: No rashes noted on visualized skin Results 07/06/19 01:31 07/06/19 01:31 Lab Results, Last 24 hours 07/06/19 07/06/19 01:31 01:31 WBC 5.4 Hgb 11.7 Hct 38.2 Plt Count 174 Sodium 137 Potassium 3.8 Chloride 109 H Carbon Dioxide 22 L BUN 11 Creatinine 0.73 Glucose 104 Calcium 8.2 L Magnesium 2.0 Consult Discharge Plan - Plan Referrals: Bernie Roberts, [employer] [Primary Care Provider] - 07/13/19 10:15 am (Please arrive at 1000 AM)
--- NOTE | 2019-07-06 15:50 | Electrocardiograph Report ---
[address] [address] Test Date: 2019-07-04 Pat Name: Ellen Lynch Department: 110 Room: 2N09 Gender: F [employer]: : 1955 Requested By: Ian Mcnulty Order Number: [id number] Reading MD: Mercedes Moreau Measurements Intervals [place] Rate: 75 P: 44 NH: 160 QRS: 34 QRSD: 89 T: 54 QT: 411 QTc: 439 Interpretive Statements SINUS RHYTHM Electronically Signed On 07-06-2019 15:48:33 EDT by Mercedes Moreau
[2019-07-06] MEDS: Aspirin Enteric Coated 81 MG Tablet PO SCH (17:10)
[2019-07-06] MEDS ORDERED: 0.9 % Sodium Chloride 1,000 ML ONE (19:48)
[2019-07-06] MEDS: Loratadine 10 MG TABLET PO SCH (20:20)
[2019-07-06] MEDS: 0.9 % Sodium Chloride 1,000 ML IVC SCH (20:21)
--- NOTE | 2019-07-07 04:47 | Anesthesia Evaluation PreOp ---
<BorjaKimberly - Last Filed: 07/07/19 04:45> Date of Encounter: 07/07/19 Time of Encounter: 04:45 - Past History Planned Operation: Repar Right femoral aa aneurysm Cardiac History: HTN, Hyperlipidemia, Other (PAD, Femoral aa aneurysm [facility] 07/05/19 Indications: Pre-operative Evaluation Impressions: Coronary arteries have minimal CAD Plan: Optimal medical therapy of patient's disease Aggressive risk factor modification Acceptable intermediate CV risk for vascular surgery Coronary Dominance: right Lesion Findings/Interventions * Left Main Coronary Artery The LMCA is angiographically free of disease. * Left Anterior Descending The LAD is angiographically free of disease. The 1st Diagonal is angiographically free of disease. * Circumflex There is a 15-20% stenosis in the 1st Marginal. * Right Coronary Artery The RCA is angiographically free of disease. The Right PDA is angiographically free of disease.) Pulmonary History: Asthma CONTENT ARCHITECT History: Denies Any Significant HX Other Medical History: Denies Any Significant HX Anesthesia History: No Prior Anesthetic Complications, Past Anesthesia (R knee scope) Alcohol Use: occasionally Drug use: none Medications and Allergies Ezetimibe [Zetia] 10 mg PO QPM 08/02/16 [History] Gabapentin [Neurontin] 600 mg PO TID 08/02/16 [History] Loratadine [Allergy Relief] 10 mg PO DAILY 08/02/16 [History] Rivaroxaban [Xarelto] 20 mg PO QPM 08/02/16 [History] SUMAtriptan Succinate [Imitrex] 100 mg PO DAILY PRN 08/28/17 [History] Oxybutynin [Ditropan] 5 mg PO BID 11/11/18 [History] Tamoxifen Citrate 20 mg PO DAILY #30 tab 02/22/19 [Rx] Aspirin [Lo-Dose Aspirin EC] 81 mg PO QPM 07/04/19 [History] Calcium Carbonate/Vitamin D3 [Calcium 600 + Vit D Tablet] 1 each PO BID 07/04/19 [History] Allergy/AdvReac Type Severity Reaction Status Date / Time meperidine [From Demerol] AdvReac Nausea Verified 07/04/19 19:23 - Meds/Allergy Pre-op Review Medications Reviewed: Yes Allergies Reviewed: Yes Beta Blockers on Current Med List: No Anesthesia Results - Labs 07/06/19 01:31 07/06/19 01:31 Laboratory Tests 07/04/19 07/06/19 20:08 21:41 PT 12.9 H INR 1.1 Heparin Anti-Xa, Unfract 0.30 - Imaging EKG: report reviewed ( Interpretive Statements SINUS RHYTHM Electronically Signed On 07-06-2019 15:48:33 EDT by Mercedes Moreau) Additional studies: ECHO 07/05/16 Impressions: LVEF 60-65%. Normal LV chamber size, wall thickness and function. Mild left ventricular diastolic dysfunction. Normal right ventricular structure and function. No evidence of pulmonary hypertension. No significant valvular dysfunction. Anesthesia Exam Vital Signs/O2 Sat, Most Current Temp Pulse Resp BP Pulse Ox 98.9 F 67 16 161/72 95 07/07/19 04:19 07/07/19 04:19 07/07/19 04:19 07/07/19 04:19 07/07/19 04:19 - HEENT Pupil (Motor): Pupils equal, EOMI Mallampati: III Teeth: Edentulous - CONTENT ARCHITECT LOC: Oriented CONTENT ARCHITECT Motor: Normal RUE, Normal LUE, Normal RLE, Normal LLE, Normal Face CONTENT ARCHITECT Sensory: Normal: RUE, LUE, RLE, LLE, Face - Cardiac Rhythm: Regular - Pulmonary Breath Sounds: bilateral Clear Respiratory Effort: Symmetrical Anesthesia Assess/Plan ASA Score: 3 Level of consciousness: Cooperative Anesthetic Plan: General Monitoring Plan: Standard Monitors Recovery Plan: PACU <Rocio Dailey - Last Filed: 07/07/19 11:54> Date of Encounter: 07/07/19 Anesthesia Results - Labs 07/06/19 01:31 07/06/19 01:31 Anesthesia Exam Vital Signs Temp Pulse Resp BP Pulse Ox 07/07/19 07:25 98.4 F 67 17 152/70 93 07/07/19 04:19 98.9 F 67 16 161/72 95 07/06/19 23:39 97.6 F 57 16 159/59 97 07/06/19 19:27 98.3 F 78 16 186/87 94 07/06/19 17:24 75 143/101 07/06/19 16:06 98.4 F 68 18 172/75 96 Intake and Output 07/06/19 07/07/19 07/07/19 23:59 07:59 15:59 Intake Total 315.1 / 1053.1 Output Total 600 / 1050 500 / 500 Balance -284.9 / 3.1 -500 / -500 Intake: IV Fluids 75.1 / 333.1 Heparin 25,000 UNIT/250 ML D5W 75.1 / 333.1 25,000 unit In 250 ml @ 14 UNIT /KG/HR 10.77 mls/hr IVC . [id number] MALIHA Rx#:[id number] Oral 240 / 720 Output: Urine 600 / 1050 500 / 500 Other: Meal Dinner Percent of Meal Consumed 95% # Voids 1 Weight 89.9 kg Patient Weight 07/07/19 23:59 Weight 89.9 kg Height: 5'2" Weight: 198# BMI = 36.3 NPO (# of Hours): MNOc - HEENT Oral Opening: Greater than 3 Anes Supervising Prov Stmt: Impressions Lower Extremity CTA 07/04/19 18:21 IMPRESSION: Fem-fem bypass graft and right common femoral artery occlusion, new since May. Unchanged right common iliac pseudoaneurysm. D/ / 07/04/2019 18:47:59 Janes Russo MD / leslye Interpreting Provider: Janes Russo MD Pt seen/evaluated, R&B Discussed, questions answered and consent obtained. Priya James MD
--- NOTE | 2019-07-07 07:31 | Internal Med Progress Note ---
Hospitalist Progress Note - Encounter Date of Encounter: 07/07/19 Time of Encounter: 07:31 - Subjective Interval History: Pt denies any complaints this AM, other than being bored and hoping to go to surgery soon. No leg pain, numbness/tingling, color change, or tenderness. She is hopeful to walk around soon and to possibly d/c tomorrow. - Exam Vitals: Temp Pulse Resp BP Pulse Ox 98.4 F 67 17 152/70 93 07/07/19 07:07/07/19 07:07/07/19 07:07/07/19 07:07/07/19 07:25 Exam: General: NAD, good eye contact, well appearing Thoracic: Normal breath sounds b/l, no wheezing or crackles Cardio: Normal S1 and S2, regular rate and rhythm, no murmurs Abdomen: Soft, nontender, nondistended, obese Extremities: Warm. DP pulses 2+ LLE, not palpable on RLE. Does have pitting edema through b/l legs. Skin: Intact. No rashes, bruises, or ulcers Neuro: Awake, fully oriented. Speech fluent - Summary of Assessment and Plan Summary of Assessment and Plan: Ellen Lynch is a 63 F w hx PAD s/p fem-fem bypass '10, DVT on AC, HLD, BrCa on tamoxifen, who p/w RLE pain, CTA RLE showing new R common fem arterial occlusion due to thrombosis as well as R fem artery anastomotic aneursym. Occlusion of R fem artery: seen on CTA, diminished but not absent TRUMAN, and pulses faint but present on doppler, without cyanosis - VascSurg consulted, plan revascularization of thrombosed bypass and resection of anastomotic aneurysm today 07/07 - hep gtt - pain control as needed to include home gabapentin 600 tid - home ASA - not on statin but takes zetia HLD: [facility] 07/05 without obstructive CAD, appreciate cardio assistance Breast cancer: home tamoxifen DVT: holding AC and using hep gtt Obesity: BMI 36 PPx: hep gtt, holding home xarelto Tele: yes Activity: up ad tommy FEN: NPO then resume cardiac diet after surgery, no MIVF Lines: PIV Consults: Cardio, VascSurg Code: Full Dispo: patient requires inpatient eval and management at this time, anticipate 1-2 more day, will be homegoing Internal Medicine: Result - Labs CBC & Chem 7: 07/06/19 01:31 07/06/19 01:31 - ABG Interpretation ABG results: PT/INR, D-dimer PT 12.9 Seconds (9.4-12.1) H 07/04/19 20:08 Consult Discharge Plan - Plan Referrals: Bernie Roberts, [facility] [employer] [facility] [Primary Care Provider] - 07/13/19 10:15 am (Please arrive at 1000 AM)
[2019-07-07] MEDS: Loratadine 10 MG TABLET PO SCH (08:28)
[2019-07-07] MEDS: Gabapentin 300 MG CAPSULE PO SCH ×3 (08:28→21:52)
[2019-07-07] MEDS: Heparin 25,000 UNIT/250 ML D5W 25,000 UNIT/250 ML IV.SOLN IVC SCH (08:31)
[2019-07-07] MEDS ORDERED: Lidocaine HCL 4 ML Topical Solution (Laryng-O-Jet Kit Sterile Pak) TP ONE (12:48)
[2019-07-07] MEDS ORDERED: *HR* Propofol 200 MG/20 ML VIAL IVP ONE (12:49)
[2019-07-07] MEDS ORDERED: *HR* Midazolam HCl 2 MG/2 ML VIAL ONE (12:49)
[2019-07-07] MEDS ORDERED: *HR* FentaNYL (PF) 100 MCG/2 ML VIAL ONE (12:49)
[2019-07-07] MEDS ORDERED: *HR* Rocuronium Bromide 50 MG/5 ML VIAL ONE (12:56)
[2019-07-07] MEDS ORDERED: Lidocaine -MPF 2% 2 ML VIAL ONE (12:56)
[2019-07-07] MEDS ORDERED: *HR* Succinylcholine 200 MG/10 ML VIAL IVP ONE (12:56)
[2019-07-07] MEDS ORDERED: Lidocaine -MPF 2% 5 ML VIAL ONE (12:57)
[2019-07-07] MEDS ORDERED: Ondansetron 4 MG/2 ML VIAL ONE (12:58)
[2019-07-07] MEDS ORDERED: Heparin 1,000 UNITS/500 mL 500 ML ONE (12:58)
[2019-07-07] MEDS ORDERED: Vancomycin 1,000 MG, Sodium Chloride IRRigation 1,000 ML IR ONE (13:00)
[2019-07-07] MEDS ORDERED: Scopolamine Patch 1.5 MG PATCH.TD72 ONE (13:19)
[2019-07-07] MEDS ORDERED: Acetaminophen IV 1,000 MG/100 ML INFUS..BTL ONE (13:20)
[2019-07-07] MEDS ORDERED: Heparin 1,000 UNITS/500 mL 1,000 ML ONE (13:29)
[2019-07-07] MEDS ORDERED: EPHEDrine 50 MG/ML VIAL ONE (13:51)
[2019-07-07] MEDS ORDERED: CeFAZolin Syr 2,000MG/20 ML 2,000 MG/20 ML SYRINGE IVPB SCH (14:00)
[2019-07-07] MEDS ORDERED: *HR* PHENYLEPHRINE 1,000 MCG/10 ML SYRINGE IVP ONE (14:16)
[2019-07-07] MEDS ORDERED: Calcium Gluconate 1,000 MG/10 ML VIAL ONE (14:50)
[2019-07-07] MEDS ORDERED: *HR* Phenylephrine 10 MG/ML VIAL ONE (14:59)
[2019-07-07] MEDS ORDERED: Dexamethasone 4 MG/ML VIAL ONE (15:19)
[2019-07-07] MEDS ORDERED: *HR* Heparin 5,000 UNIT/ML VIAL ONE (16:21)
[2019-07-07] MEDS: 0.9 % Sodium Chloride 1,000 ML IVC SCH (17:29)
[2019-07-07] MEDS ORDERED: *HR* HYDROMORPHONE 2 MG/ML VIAL ONE (17:38)
[2019-07-07] MEDS ORDERED: Bupivacaine-MPF 0.25% 10 ML VIAL ONE (17:46)
--- NOTE | 2019-07-07 18:31 | Operative Note ---
Date of procedure: 07/07/19 Pre-op diagnosis: Acute right lower extremity ischemia, right femoral artery aneurysm Post-op diagnosis: same Procedure: 1. Resection of right femoral artery aneurysm. 2. Left common femoral artery to right common femoral artery bypass graft thrombectomy with revision of the distal anastomosis. Complications: None Anesthesia: GETA Surgeon: Alexis Kruger Was there an field technical assistant present: No Estimated blood loss (cc): 100 Specimen: Thrombus an aneurysm Condition: stable Disposition: PACU Procedure in Detail: Indications: Patient is a 63-year-old female with history of peripheral vascular disease with disabling claudication. The patient previously undergone a femoral to femoral artery bypass graft and multiple revisions of the graft. The patient recently presented to clinic with complaints of right inguinal pain and swelling. She is found have a right femoral artery aneurysm. The patient subsequently thrombosis or aneurysm and a femoral-femoral artery bypass graft. Revascularization resection of the aneurysm was recommended. Procedure: The patient was identified in the preoperative area. The risks, benefits alternatives of the procedure were discussed with her and all questions were answered. The patient was then taken to the operating room and placed in the supine position on the operating room table. After the induction of general endotracheal anesthesia she was cleaned and draped in the normal sterile fashion. An oblique incision was made over the right inguinal region sharply. Hemostasis was obtained via electrocautery. Through a process of blunt, sharp R dissection the proximal common femoral artery, femoral-femoral artery bypass graft, deep and superficial femoral artery were dissected without disrupting the aneurysm. The patient received 5000 units of heparin intravenously. After waiting adequate time for the heparin to circulate the femoral vessels were clamped and the aneurysm was incised longitudinally. The incision was extended into the origin of the graft anastomosis. Large amounts of organized thrombus were removed and sent to pathology. The aneurysm wall was resected. The femoral to femoral artery bypass graft was transected off the femoral artery. A Jaron embolus to be catheter was passed on the superficial femoral and deep femoral arteries. Additional thrombus was retrieved. Vigorous retrograde flow was identified upon release of the thrombectomy. A Jaron embolectomy catheter was then passed into the graft and a graft thrombectomy was then performed. Vigorous pulsatile flow was noted through the graft. Multiple passes revealed no additional thrombus present. The graft was infused with heparinized saline and clamped. A new 6 mm ring reinforced PTFE graft was cut to fit the femoral arteriotomy. The graft was then sutured in place with a running 6-0 Prolene. The sutures were not tied. The graft was then cut to fit the remaining segment of the previous graft. An end-to-end anastomosis was then performed with a running 6-0 Prolene. The graft was then flushed through the arteriotomy site. Vigorous pulsatile flow was noted. The graft was infused with heparinized saline. The femoral anastomosis was completed. Flow was restored. Polyphasic signals were noted in the deep and superficial femoral artery distal to the anastomosis. Thrombin and Gelfoam were used to aid in hemostasis. Meticulous hemostasis was obtained throughout the wound with electrocautery. Platelet rich and platelet poor plasma were infused into the wound. The wound was reapproximated with a layer of 2-0 running Vicryl suture, followed by 3 layers of running 3-0 Vicryl suture. The skin was approximated with a running 3-0 Monocryl suture. A sterile dressing was applied and the patient was extubated and taken to the recovery room in stable condition.
[2019-07-07] MEDS: *HR* HYDROmorphone (PF) 1 MG/ML SYRINGE IVP PRN ×4 (18:32→18:55)
--- NOTE | 2019-07-07 19:05 | Anesthesia Evaluation Post Op ---
Date of Encounter: 07/07/19 Time of Encounter: 19:04 - Vital Signs Vital Signs: Vital Signs/O2 Sat, Most Current Temp Pulse Resp BP Pulse Ox 97.9 F 78 18 101/68 96 07/07/19 18:45 07/07/19 18:55 07/07/19 18:55 07/07/19 18:55 07/07/19 18:55 - Lungs Lungs: Clear Ascult./Percussion - Airway Airway: Non-obstructed - Cardiovascular Regular Rate - Mental Status Mental Status: Alert & Oriented, Answers Appropriately - Pain Pain Scale: 0 Pain Scale used: Numeric (1 - 10) - Nausea Vomiting Nausea Vomiting: Not Present - Hydration Hydration: Ice chips - Discharge PostOp Status: Transfer Patient to floor
[2019-07-07] MEDS ORDERED: 0.9 % Sodium Chloride 1,000 ML IVC SCH ×2 (19:37)
[2019-07-07] MEDS ORDERED: Ondansetron 4 MG/2 ML VIAL IVP PRN (19:37)
[2019-07-07] MEDS ORDERED: *HR* Labetalol 20 MG/4 ML SYRINGE IVP PRN (19:37)
[2019-07-07] MEDS ORDERED: Naloxone 0.4 MG/ML INJ IVP PRN (19:37)
[2019-07-07] MEDS ORDERED: *HR* HYDROcodone/Acet 5/325 mg TABLET PO PRN (19:37)
[2019-07-07] MEDS ORDERED: Acetaminophen 325 MG TABLET PO PRN (19:37)
[2019-07-07] MEDS ORDERED: *HR* OxyCODONE Immed Rel 5 MG TABLET PO PRN (19:37)
[2019-07-07] MEDS ORDERED: 0.9 % Sodium Chloride 1,000 ML ONE (20:34)
[2019-07-07] MEDS: *HR* Metoprolol 5 MG/5 ML VIAL IVP SCH (21:52)
[2019-07-08] MEDS: *HR* Metoprolol 5 MG/5 ML VIAL IVP SCH ×2 (00:32→08:44)
[2019-07-08 02:44] LABS: Basophils % 0.3 %; Hematocrit 34.8 % (35.3-44.9); Hemoglobin 10.2 g/dL (11.5-15.4); Immature Granulocytes % 0.4 % (0-4); Lymphocytes # 0.6 K/mcL (0.6-4.6); Lymphocytes % 8.9 %; Mean Corpuscular HGB Conc 29.3 g/dL (31.6-35.5); Mean Corpuscular Hemoglobin 24.3 pg (28.0-33.3); Mean Corpuscular Volume 83.1 fL (83.0-100.0); Mean Platelet Volume 9.9 fL (9.4-12.4); Monocytes # 0.2 K/mcL (0.0-1.3); Monocytes % 2.9 %; Platelet Count 148 K/mcL (140-400); Red Blood Count 4.19 M/mcL (3.82-4.97); Red Cell Distribution Width 16.3 % (11.5-14.5); Segmented Neutrophils % 87.5 %; White Blood Count 6.9 K/mcL (4.3-11.1)
[2019-07-08 03:07] LABS: BUN/Creatinine Ratio 13 (6-26); Blood Urea Nitrogen 11 mg/dL (8-23); Calcium 7.6 mg/dL (8.6-10.3); Carbon Dioxide 20 mEq/L (23-29); Chloride 109 mEq/L (98-107); Glucose 158 mg/dL (70-105); Osmolality,Calculated 285 (280-300); Potassium 4.4 mEq/L (3.5-5.1); Sodium 136 mEq/L (136-145); eGFR For African Americans > 60 (> 60); eGFR For Non-African Americans > 60 (> 60)
[2019-07-08] MEDS ORDERED: *HR* Heparin 5,000 UNIT/ML VIAL SQ SCH (06:00)
[2019-07-08 08:02] VITALS: BP 126/64
--- NOTE | 2019-07-08 08:10 | Discharge Summary ---
- NOTES TO OUTPATIENT PROVIDER Notes to Outpatient Provider: Thrombosis of fem-fem bypass requiring VascSurg revascularization. LH with minimal CAD. Date of Encounter: 07/08/19 Time of Encounter: 08:07 Hospital course: Dear Doctors, I recently had the opportunity to care for this patient during their recent hospital stay at [facility]. Ellen Lynch is a 63 F w hx PAD s/p fem-fem bypass '10, DVT on AC, HLD, breast cancer on tamoxifen, who presented at time of admission with sudden onset RLE pain. A CTA RLE showed new R common fem arterial occlusion due to thrombosis as well as R fem artery anastomotic aneursym. Distal pulse present on doppler and thus not taken for emergent surgery. Due to recent outpatient abnormal stress test, she was first taken by Cardio for LHC which showed no CAD. Therefore, she was taken to OR on 07/[address] Kruger for revascularization of thrombosed bypass and resection of anastomotic aneurysm. No immediate complications. Patient today without bleeding/bruising from R groin access site, and able to ambulate. Will resume Xarelto and follow up closely with VascSurg. Dx: acutely thrombosed fem-fem bypass graft Pertinent tests/consults: - Cardio performed LHC with minimal CAD - VascSurg performed resection of R fem artery aneurysm, and L to R fem fem bypass graft thrombectomy w revision of distal anastomosis Follow up: PCP 1-2 weeks, VascSurg 1-2 weeks Tests pending: none Med changes: new [place] 5 q6h prn pain #12 Mental status: awake, fully oriented Code status: Sample Display Preparer spent on discharge: 35 minutes It has been my pleasure participating in this patient's care. Please contact me with any questions or concerns regarding their hospital stay. Sincerely, Anthony Iniguez MD - Discharge Medications Prescriptions: New HYDROcodone/Acet 5/325 mg [[place] 5-325 mg] 1 tab PO Q6H PRN 3 Days #12 tab PRN Reason: Pain Continued Rivaroxaban [Xarelto] 20 mg PO QPM Gabapentin [Neurontin] 600 mg PO TID Ezetimibe [Zetia] 10 mg PO QPM Loratadine [Allergy Relief] 10 mg PO DAILY SUMAtriptan Succinate [Imitrex] 100 mg PO DAILY PRN PRN Reason: Migraine Headache Oxybutynin [Ditropan] 5 mg PO BID Tamoxifen Citrate 20 mg PO DAILY #30 tab Aspirin [Lo-Dose Aspirin EC] 81 mg PO QPM Calcium Carbonate/Vitamin D3 [Calcium 600 + Vit D Tablet] 1 each PO BID Home Medications: Ezetimibe [Zetia] 10 mg PO QPM 08/02/16 [History] Gabapentin [Neurontin] 600 mg PO TID 08/02/16 [History] Loratadine [Allergy Relief] 10 mg PO DAILY 08/02/16 [History] Rivaroxaban [Xarelto] 20 mg PO QPM 08/02/16 [History] SUMAtriptan Succinate [Imitrex] 100 mg PO DAILY PRN 08/28/17 [History] Oxybutynin [Ditropan] 5 mg PO BID 11/11/18 [History] Tamoxifen Citrate 20 mg PO DAILY #30 tab 02/22/19 [Rx] Aspirin [Lo-Dose Aspirin EC] 81 mg PO QPM 07/04/19 [History] Calcium Carbonate/Vitamin D3 [Calcium 600 + Vit D Tablet] 1 each PO BID 07/04/19 [History] HYDROcodone/Acet 5/325 mg [[place] 5-325 mg] 1 tab PO Q6H PRN 3 Days #12 tab 07/08/19 [Rx] Allergies/Adverse Reactions: Allergy/AdvReac Type Severity Reaction Status Date / Time meperidine [From Demerol] AdvReac Nausea Verified 07/04/19 19:23 Date of admission: 07/04/19 19:58 Primary care physician: Bernie Roberts CNP Consults: 07/04/19 19:28 Consult to Cardiology [CONS] Stat Comment: Consulting Provider: Cardiology [place] Reason for Consult: abnormal stress test Call Completed: Yes Consult to Vascular Surgery [CONS] Stat Consulting Provider: Vascular Surgery [place] Reason for Consult: femoral occlusion Call Completed: Yes - Constitutional Vitals: Temp Pulse Resp BP Pulse Ox 98.2 F 56 16 126/64 98 07/08/19 07:56 07/08/19 07:56 07/08/19 07:56 07/08/19 07:56 07/08/19 07:56 Exam: General: NAD, good eye contact, well appearing Thoracic: Normal breath sounds b/l, no wheezing or crackles Cardio: Normal S1 and S2, regular rate and rhythm, no murmurs Abdomen: Soft, nontender, nondistended, obese Extremities: Warm. DP pulses 2+ b/l. Does have mild pitting edema through b/l legs. Skin: Intact. No rashes, bruises, or ulcers. R inguinal incision dressing c/d/i Neuro: Awake, fully oriented. Speech fluent - Patient Status Disposition: Home, Self-Care Condition: Fair Functional capacity at discharge: independent ambulation Overall status at discharge: patient is progressing back to baseline - Discharge Instructions Instructions: Peripheral Vascular Disorders (DC) Follow Up With: Bernie Roberts CNP [Primary Care Provider] - 07/13/19 10:15 am (Please arrive at 1000 AM) Alexis Kruger MD [Partnered Physician] - 08/03/19 1:00 pm () Additional Instructions: May remove bandage and shower on 07/09/2019. Wash wound gently with soap and water only. Apply dry gauze to wound daily for 7 days. No tub baths or swimming until 08/11/2019. Call Dr. Kruger at [phone] with questions or concerns. - Diet and Activity Activity: increase activity as tolerated (follow instructions from your vascular surgeon, no lifting >5 lbs for 1 week) Diet: advance to your usual diet
--- NOTE | 2019-07-08 08:34 | Vascular/[facility] Progress Note ---
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 Her incision is healing well. Her right lower extremity is well perfused and neurovascularly intact. She may be discharged froma vascular surgery perspective. She may resume her anticoagulation. Her follow-up appointment. has been scheduled with vascular surgery. She was instructed to apply a clean dry bandage daily for the next week. 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 This will be resected at the time of for revascularization. (3) Coronary artery disease Current Visit: Yes Status: Chronic The patient had an abnormal stress test and is undergone a left heart catheterization. She did not require intervention. She is cleared for surgery. Qualifiers: Coronary Disease-Associated Artery/Lesion type: [place] artery [place] vs. transplanted heart: [place] heart Associated angina: without angina Qualified Code(s): I25.10 - Atherosclerotic heart disease of [place] coronary artery without angina pectoris (4) Mixed hyperlipidemia Current Visit: Yes Status: Chronic The patient was counseled regarding atherosclerotic risk factor reduction. (5) Moderate protein malnutrition Current Visit: Yes Status: Chronic (6) Acute blood loss anemia Current Visit: Yes Status: Acute She has acute expected postoperative blood loss anemia. She is hemodynamically stable without evidence of ongoing blood loss. - Subjective Interval history: The patient reports that her right leg is feeling better. She has adequate pain control. She had no acute issues overnight. She denies chest pain or shortness of breath. Vital Signs, Last 4 Hours Temp Pulse Resp BP Pulse Ox 07/08/19 07:56 98.2 F 56 16 126/64 98 - Physical Examination General: Present: Conversant HEENT: Present: Pupils equal Cardiac: Present: Reg Rate and Rhythm Lungs: Present: Normal Breath Sounds Neuro: Present: Alert and responsive, No focal deficits noted Vascular: Present: Normal capillary refill, Pulse, normal, Edema, Surgical incisions (clean, dry and intact without erythema or drainage, no hematoma). Absent: Cyanosis Abdomen: Present: Soft, Non-tender Skin: Present: No rashes noted on visualized skin Results 07/08/19 01:12 07/08/19 01:12 Lab Results, Last 24 hours 07/08/19 07/08/19 01:12 01:12 WBC 6.9 Hgb 10.2 L D Hct 34.8 L Plt Count 148 Sodium 136 Potassium 4.4 Chloride 109 H Carbon Dioxide 20 L BUN 11 Creatinine 0.87 Glucose 158 H Calcium 7.6 L Consult Discharge Plan - Plan Additional Instructions: May remove bandage and shower on 07/09/2019. Wash wound gently with soap and water only. Apply dry gauze to wound daily for 7 days. No tub baths or swimming until 08/11/2019. Call Dr. Kruger at [phone] with questions or concerns. Referrals: Bernie Roberts CNP [Primary Care Provider] - 07/13/19 10:15 am (Please arrive at 1000 AM) Alexis Kruger MD [Partnered Physician] - 08/03/19 1:00 pm () Prescriptions: HYDROcodone/Acet 5/325 mg [[place] 5-325 mg] 1 tab PO Q6H PRN 3 Days #12 tab PRN Reason: Pain Transmission Status: Received by [facility]
[2019-07-08] MEDS: Gabapentin 300 MG CAPSULE PO SCH (08:47)
[2019-07-08] MEDS ORDERED: Loratadine 10 MG TABLET PO SCH (09:00)
[2019-07-08] MEDS ORDERED: Aspirin Enteric Coated 81 MG Tablet PO SCH (18:00)
== END 2019-07-08 10:22 | disposition home or self-care (01) | DRG 253 ==
LOC: EMEROOARM 16:09 → SUATTDRO 19:58 → 2NNU 19:58
PROVIDERS: ADMIT Family Medicine; ATTEND Internal Medicine

== ENCOUNTER 2020-03-23 06:22 | Inpatient (IN) ==
[~2020-03-23 06:22] MED LIST: Vancomycin 1,000 MG, Sodium Chloride IRRigation 1,000 ML IR ONE
[2020-03-23] MEDS ORDERED: CeFAZolin Syr 2,000MG/20 ML 2,000 MG/20 ML SYRINGE IVPB ONE (06:35)
[2020-03-23] MEDS ORDERED: Ringers Solution, Lactated 1,000 ML IVC SCH ×2 (06:45→07:30)
[2020-03-23] MEDS ORDERED: *HR* Propofol 200 MG/20 ML VIAL IVP ONE (07:04)
[2020-03-23] MEDS ORDERED: *HR* Midazolam HCl 2 MG/2 ML VIAL ONE (07:04)
[2020-03-23] MEDS ORDERED: *HR* FentaNYL (PF) 100 MCG/2 ML VIAL ONE ×2 (07:04→09:55)
[2020-03-23] MEDS ORDERED: Heparin 1,000 UNITS/500 mL 500 ML ONE ×2 (07:15→12:15)
[2020-03-23] MEDS ORDERED: Vancomycin 1,000 MG VIAL ONE (07:16)
[2020-03-23] MEDS ORDERED: *HR* OxyCODONE Immed Rel 5 MG TABLET PO PRN ×3 (07:21→14:38)
[2020-03-23] MEDS ORDERED: *HR* HYDROmorphone PF 0.5 MG/0.5 ML SYRINGE IVP PRN (07:21)
[2020-03-23] MEDS ORDERED: Ondansetron 4 MG/2 ML VIAL IVP ONE (07:21)
[2020-03-23] MEDS ORDERED: Lidocaine HCL 4 ML Topical Solution (Laryng-O-Jet Kit Sterile Pak) TP ONE (07:22)
[2020-03-23] MEDS ORDERED: Lidocaine -MPF 2% 2 ML VIAL ONE ×2 (07:22→09:11)
[2020-03-23] MEDS ORDERED: *HR* Rocuronium Bromide 50 MG/5 ML VIAL ONE ×2 (07:22→09:55)
[2020-03-23] MEDS ORDERED: *HR* Phenylephrine 10 MG/ML VIAL ONE (07:22)
[2020-03-23] MEDS ORDERED: *HR* Heparin 5,000 UNIT/ML VIAL ONE ×2 (07:23→10:09)
[2020-03-23] MEDS ORDERED: Vancomycin 1,250 MG/262.5 ML IV.SOLN IVPB ONE ×2 (08:30→20:00)
[2020-03-23] MEDS ORDERED: Dexamethasone 4 MG/ML VIAL ONE (09:52)
[2020-03-23] MEDS ORDERED: *HR* HYDROMORPHONE 2 MG/ML VIAL ONE (11:56)
[2020-03-23] MEDS ORDERED: *HR* Labetalol 20 MG/4 ML SYRINGE IVP ONE (12:17)
[2020-03-23] MEDS ORDERED: Ondansetron 4 MG/2 ML VIAL ONE (12:20)
[2020-03-23] MEDS ORDERED: 0.9 % Sodium Chloride 1,000 ML IVC SCH (14:38)
[2020-03-23] MEDS ORDERED: Ondansetron 4 MG/2 ML VIAL IVP PRN (14:38)
[2020-03-23] MEDS ORDERED: *HR* Labetalol 20 MG/4 ML SYRINGE IVP PRN (14:38)
[2020-03-23] MEDS ORDERED: Naloxone 0.4 MG/ML INJ IVP PRN (14:38)
[2020-03-23] MEDS ORDERED: Acetaminophen 325 MG TABLET PO PRN ×2 (14:38)
[2020-03-23] MEDS ORDERED: CeFAZolin 2 GM/120 ML BAG IVPB SCH (14:38)
[2020-03-23] MEDS ORDERED: *HR* HYDROcodone/Acet 5/325 mg TABLET PO PRN ×2 (14:38)
[2020-03-23] MEDS: CeFAZolin 2 GM/120 ML BAG IVPB SCH ×2 (16:07→23:36)
[2020-03-23] MEDS: *HR* Metoprolol 5 MG/5 ML VIAL IVP SCH ×2 (17:36→23:37)
[2020-03-23] MEDS ORDERED: Aspirin Enteric Coated 81 MG Tablet PO SCH (21:00)
[2020-03-24 04:01] LABS: Basophils % 0.1 %; Hematocrit 38.5 % (35.3-44.9); Immature Granulocytes % 0.4 % (0-4); Lymphocytes # 0.7 K/mcL (0.6-4.6); Lymphocytes % 7.1 %; Mean Corpuscular HGB Conc 30.6 g/dL (31.6-35.5); Mean Corpuscular Hemoglobin 28.2 pg (28.0-33.3); Mean Corpuscular Volume 92.1 fL (83.0-100.0); Mean Platelet Volume 9.7 fL (9.4-12.4); Monocytes # 0.4 K/mcL (0.0-1.3); Monocytes % 3.6 %; Neutrophils # 8.8 K/mcL (1.6-8.9); Platelet Count 156 K/mcL (140-400); Red Blood Count 4.18 M/mcL (3.82-4.97); Red Cell Distribution Width 13.8 % (11.5-14.5); Segmented Neutrophils % 88.8 %
[2020-03-24 04:02] LABS: White Blood Count 9.9 K/mcL (4.3-11.1)
[2020-03-24 04:03] LABS: Hemoglobin 11.8 g/dL (11.5-15.4)
[2020-03-24 04:16] LABS: BUN/Creatinine Ratio 12 (6-26); Blood Urea Nitrogen 9 mg/dL (8-23); Calcium 8.2 mg/dL (8.6-10.3); Carbon Dioxide 23 mEq/L (23-29); Chloride 109 mEq/L (98-107); Glucose 148 mg/dL (70-105); Osmolality,Calculated 287 (280-300); Potassium 4.2 mEq/L (3.5-5.1); Sodium 138 mEq/L (136-145); eGFR For African Americans > 60 (> 60); eGFR For Non-African Americans > 60 (> 60)
[2020-03-24] MEDS: *HR* Metoprolol 5 MG/5 ML VIAL IVP SCH (05:37)
[2020-03-24] MEDS ORDERED: *HR* Heparin 5,000 UNIT/ML VIAL SQ SCH (06:00)
[2020-03-24] MEDS ORDERED: SUMAtriptan succinate 50 MG TABLET PO PRN (07:19)
[2020-03-24 08:00] VITALS: BP 116/58
[2020-03-24] MEDS ORDERED: *HR* Rivaroxaban 10 MG TABLET PO SCH ×3 (09:00→21:00)
[2020-03-24] MEDS ORDERED: Loratadine 10 MG TABLET PO SCH (09:00)
[2020-03-24] MEDS ORDERED: Gabapentin 300 MG CAPSULE PO SCH (09:00)
[2020-03-24] MEDS ORDERED: Cholecalciferol (D-3) 1,000 UNIT (25MCG) TABLET PO SCH (09:00)
[2020-03-24] MEDS ORDERED: *HR* Heparin 5,000 UNIT/ML VIAL SQ ONE (10:05)
[2020-03-24] MEDS ORDERED: NON-FORMULARY MEDICATION 1 EACH EACH (Ezetimibe [Zetia] 10 MG) PO SCH (21:00)
== END 2020-03-24 11:12 | disposition home or self-care (01) | DRG 271 ==
LOC: SAMDAY 06:22 → 2NNU 13:51
PROVIDERS: ADMIT Surgery; ATTEND Surgery
PROC: VASFFBG (ICD-10-PCS; 2020-03-23 09:55)

== ENCOUNTER 2020-08-23 09:59 | Inpatient (IN) ==
[2020-08-23] MEDS ORDERED: *HR* FentaNYL (PF) 100 MCG/2 ML VIAL ONE ×4 (10:02→17:41)
[2020-08-23] MEDS ORDERED: *HR* Propofol 200 MG/20 ML VIAL IVP ONE (10:02)
[2020-08-23] MEDS ORDERED: Lidocaine HCL 4 ML Topical Solution (Laryng-O-Jet Kit Sterile Pak) TP ONE (10:04)
[2020-08-23] MEDS ORDERED: Lidocaine -MPF 2% 2 ML VIAL ONE (10:04)
[2020-08-23] MEDS ORDERED: *HR* Phenylephrine 10 MG/ML VIAL ONE (10:05)
[2020-08-23] MEDS ORDERED: CeFAZolin Syr 2,000MG/20 ML 2,000 MG/20 ML SYRINGE IVPB ONE (10:20)
[2020-08-23] MEDS ORDERED: Vancomycin 1,250 MG/262.5 ML IV.SOLN IVPB ONE (10:20)
[2020-08-23] MEDS ORDERED: Ringers Solution, Lactated 1,000 ML IVC SCH (10:30)
[2020-08-23] MEDS ORDERED: Famotidine 20 MG/2 ML VIAL IVP ONE (10:44)
[2020-08-23] MEDS ORDERED: Acetaminophen IV 1,000 MG/100 ML INFUS..BTL IVPB ONE (10:44)
[2020-08-23] MEDS ORDERED: Scopolamine Patch 1.5 MG PATCH.TD72 TD ONE (10:44)
[2020-08-23] MEDS ORDERED: Pregabalin 75 MG CAPSULE PO ONE (10:44)
[2020-08-23] MEDS ORDERED: *HR* HYDROmorphone 2 MG TABLET PO PRN (10:44)
[2020-08-23] MEDS ORDERED: *HR* Labetalol 20 MG/4 ML SYRINGE IVP PRN ×2 (10:44→19:54)
[2020-08-23] MEDS ORDERED: Promethazine 6.25 MG in Water for inj. (sterile) 20 ML IVPB PRN (10:46)
[2020-08-23] MEDS ORDERED: Heparin 1,000 UNITS/500 mL 0 ML ONE (11:17)
[2020-08-23] MEDS ORDERED: Heparin 1,000 UNITS/500 mL 2,000 ML ONE (11:19)
[2020-08-23] MEDS ORDERED: Vancomycin 1,000 MG, Sodium Chloride IRRigation 1,000 ML IR ONE (11:25)
[2020-08-23] MEDS ORDERED: *HR* Vasopressin 20 UNIT/ML VIAL ONE (11:38)
[2020-08-23] MEDS ORDERED: Albumin Human 5% 25.0 GM/500 ML IV.SOLN ONE (11:39)
[2020-08-23] MEDS ORDERED: EPHEDrine 50 MG/ML VIAL ONE (12:49)
[2020-08-23] MEDS ORDERED: Dexamethasone 4 MG/ML VIAL ONE (13:20)
[2020-08-23] MEDS ORDERED: Ondansetron 4 MG/2 ML VIAL ONE (13:20)
[2020-08-23] MEDS ORDERED: *HR* Heparin 5,000 UNIT/ML VIAL ONE ×2 (14:45→14:46)
[2020-08-23] MEDS ORDERED: *HR* Labetalol 20 MG/4 ML SYRINGE IVP ONE (17:46)
[2020-08-23] MEDS: *HR* HYDROmorphone PF 0.5 MG/0.5 ML SYRINGE IVP PRN ×2 (18:09→18:22)
[2020-08-23] MEDS: *HR* OxyCODONE Immed Rel 5 MG TABLET PO PRN ×2 (18:25→18:45)
[2020-08-23] MEDS ORDERED: Naloxone 0.4 MG/ML INJ IVP PRN (19:54)
[2020-08-23] MEDS ORDERED: Acetaminophen 325 MG TABLET PO PRN ×2 (19:54)
[2020-08-23] MEDS ORDERED: SUMATRIPTAN SUCCINATE 100 MG PO PRN (19:54)
[2020-08-23] MEDS ORDERED: Ondansetron 4 MG/2 ML VIAL IVP PRN (19:54)
[2020-08-23] MEDS ORDERED: *HR* OxyCODONE Immed Rel 5 MG TABLET PO PRN ×2 (19:54)
[2020-08-23] MEDS ORDERED: 0.9 % Sodium Chloride 1,000 ML IVC SCH (19:54)
[2020-08-23] MEDS ORDERED: *HR* HYDROcodone/Acet 5/325 mg TABLET PO PRN (19:54)
[2020-08-23] MEDS: Aspirin Enteric Coated 81 MG Tablet PO SCH (20:52)
[2020-08-23] MEDS: *HR* HYDROcodone/Acet 5/325 mg TABLET PO PRN (20:52)
[2020-08-23] MEDS: Gabapentin 400 MG CAPSULE PO SCH (20:53)
[2020-08-23] MEDS ORDERED: (Ezetimibe [Zetia] 10 MG) PO SCH (21:00)
[2020-08-24] MEDS: *HR* Metoprolol 5 MG/5 ML VIAL IVP SCH ×6 (00:04→23:52)
[2020-08-24] MEDS: CeFAZolin 2 GM/120 ML BAG IVPB SCH ×2 (00:18→05:33)
[2020-08-24] MEDS ORDERED: Vancomycin 1,500 MG/265 ML IV.SOLN IVPB ONE (01:00)
[2020-08-24] MEDS: *HR* Heparin 5,000 UNIT/ML VIAL SQ SCH ×2 (05:33→18:27)
[2020-08-24] MEDS ORDERED: *HR* Heparin 5,000 UNIT/ML VIAL SQ SCH (06:00)
[2020-08-24 07:02] LABS: Basophils % 0.1 %; Hematocrit 32.5 % (35.3-44.9); Hemoglobin 9.9 g/dL (11.5-15.4); Immature Granulocytes % 0.3 % (0-4); Lymphocytes # 0.7 K/mcL (0.6-4.6); Mean Corpuscular HGB Conc 30.5 g/dL (31.6-35.5); Mean Corpuscular Hemoglobin 28.4 pg (28.0-33.3); Mean Corpuscular Volume 93.4 fL (83.0-100.0); Monocytes # 0.4 K/mcL (0.0-1.3); Monocytes % 3.8 %; Neutrophils # 8.1 K/mcL (1.6-8.9); Platelet Count 142 K/mcL (140-400); Red Blood Count 3.48 M/mcL (3.82-4.97); Red Cell Distribution Width 13.4 % (11.5-14.5); Segmented Neutrophils % 87.8 %; White Blood Count 9.2 K/mcL (4.3-11.1)
[2020-08-24 07:20] LABS: BUN/Creatinine Ratio 18 (6-26); Blood Urea Nitrogen 19 mg/dL (8-23); Calcium 7.7 mg/dL (8.6-10.3); Carbon Dioxide 21 mEq/L (23-29); Chloride 111 mEq/L (98-107); Glucose 111 mg/dL (70-105); Osmolality,Calculated 287 (280-300); Potassium 4.7 mEq/L (3.5-5.1); Sodium 137 mEq/L (136-145); eGFR For African Americans > 60 (> 60); eGFR For Non-African Americans 52 (> 60)
[2020-08-24] MEDS: *HR* HYDROcodone/Acet 5/325 mg TABLET PO PRN (08:03)
[2020-08-24] MEDS: Gabapentin 400 MG CAPSULE PO SCH ×3 (08:04→19:58)
[2020-08-24] MEDS: Loratadine 10 MG TABLET PO SCH (08:20)
[2020-08-24] MEDS ORDERED: SUMAtriptan succinate 50 MG TABLET PO PRN (12:45)
[2020-08-24] MEDS: Aspirin Enteric Coated 81 MG Tablet PO SCH (19:59)
[2020-08-25] MEDS: *HR* Heparin 5,000 UNIT/ML VIAL SQ SCH (05:26)
[2020-08-25] MEDS: *HR* Metoprolol 5 MG/5 ML VIAL IVP SCH ×2 (05:26→12:07)
[2020-08-25] MEDS: *HR* HYDROcodone/Acet 5/325 mg TABLET PO PRN (05:31)
[2020-08-25] MEDS: Loratadine 10 MG TABLET PO SCH (09:05)
[2020-08-25] MEDS: Gabapentin 400 MG CAPSULE PO SCH ×2 (09:05→14:59)
[2020-08-25] MEDS ORDERED: *HR* HYDROcodone/Acet 10/325 mg TABLET PO PRN ×2 (10:41→14:30)
[2020-08-25] MEDS ORDERED: *HR* HYDROcodone/Acet 10/325 mg TABLET PO ONE (10:43)
[2020-08-25 16:17] VITALS: BP 147/67
== END 2020-08-25 17:33 | disposition home or self-care (01) | DRG 271 ==
LOC: SAMDAY 09:59 → 2NNU 19:51
PROVIDERS: ADMIT Surgery; ATTEND Surgery

== ENCOUNTER 2021-10-25 06:44 | Inpatient (IN) ==
[2021-10-25] MEDS ORDERED: Vancomycin 1,250 MG/262.5 ML IV.SOLN IVPB ONE ×2 (08:16→20:00)
[2021-10-25] MEDS ORDERED: CeFAZolin Syr 2,000MG/20 ML 2,000 MG/20 ML SYRINGE IVPB ONE (08:16)
[2021-10-25] MEDS ORDERED: *HR* HYDROmorphone (PF) 1 MG/ML SYRINGE IVP PRN (08:46)
[2021-10-25] MEDS ORDERED: *HR* HYDROmorphone 2 MG TABLET PO PRN (08:46)
[2021-10-25] MEDS ORDERED: Acetaminophen IV 1,000 MG/100 ML BAG IVPB ONE (08:46)
[2021-10-25] MEDS ORDERED: *HR* OxyCODONE Immed Rel 5 MG TABLET PO PRN (08:46)
[2021-10-25] MEDS ORDERED: Famotidine 20 MG/2 ML VIAL IVP ONE (08:46)
[2021-10-25] MEDS ORDERED: *HR* Labetalol 20 MG/4 ML SYRINGE IVP PRN ×2 (08:46→17:50)
[2021-10-25] MEDS ORDERED: Pregabalin 75 MG CAPSULE PO ONE (08:46)
[2021-10-25] MEDS ORDERED: *HR* FentaNYL (PF) 100 MCG/2 ML VIAL ONE (08:50)
[2021-10-25] MEDS ORDERED: *HR* Midazolam HCl 2 MG/2 ML VIAL ONE (08:50)
[2021-10-25] MEDS ORDERED: *HR* Propofol 200 MG/20 ML VIAL IVP ONE (08:50)
[2021-10-25] MEDS ORDERED: Ondansetron 4 MG/2 ML VIAL ONE ×2 (08:51→16:23)
[2021-10-25] MEDS ORDERED: Lidocaine -MPF 2% 5 ML VIAL ONE (08:51)
[2021-10-25] MEDS ORDERED: EPINEPHrine 1 MG/ML VIAL ONE (08:51)
[2021-10-25] MEDS ORDERED: Lidocaine HCL 4 ML Topical Solution (Laryng-O-Jet Kit Sterile Pak) TP ONE (08:51)
[2021-10-25] MEDS ORDERED: *HR* Rocuronium Bromide 50 MG/5 ML VIAL ONE ×3 (08:51→13:22)
[2021-10-25] MEDS ORDERED: *HR* Phenylephrine 10 MG/ML VIAL ONE (08:52)
[2021-10-25] MEDS ORDERED: *HR* Remifentanil 2 MG VIAL IVP ONE ×2 (08:53→12:40)
[2021-10-25] MEDS ORDERED: Bupivacaine-MPF 0.25% 10 ML VIAL ONE (09:09)
[2021-10-25] MEDS ORDERED: Protamine Sulfate 50 MG/5 ML VIAL IVP ONE (09:09)
[2021-10-25] MEDS ORDERED: Heparin 1,000 UNITS/500 mL 1,500 ML ONE (09:09)
[2021-10-25] MEDS ORDERED: Vancomycin 1,000 MG VIAL ONE ×2 (09:10→14:19)
[2021-10-25] MEDS ORDERED: *HR* Vasopressin 20 UNIT/ML VIAL ONE (09:12)
[2021-10-25] MEDS ORDERED: Vancomycin 1,000 MG, 0.9 % Sodium Chloride 1,000 ML IR ONE (09:15)
[2021-10-25] MEDS ORDERED: Heparin 1,000 UNITS/500 mL 500 ML ONE (09:19)
[2021-10-25] MEDS: Ringers Solution, Lactated 1,000 ML IVC SCH ×2 (09:37→16:59)
[2021-10-25] MEDS ORDERED: Albumin Human 5% 25.0 GM/500 ML IV.SOLN ONE (09:39)
[2021-10-25] MEDS ORDERED: NiCARdipine 2.5 MG/10 ML Syringe IVPB ONE (09:39)
[2021-10-25] MEDS ORDERED: Vancomycin 1,000 MG, Sodium Chloride IRRigation 1,000 ML IR ONE (10:00)
[2021-10-25] MEDS ORDERED: *HR* Heparin 5,000 UNIT/ML VIAL ONE ×2 (12:07→13:33)
[2021-10-25] MEDS ORDERED: *HR* HYDROMORPHONE 2 MG/ML VIAL ONE (14:45)
[2021-10-25] MEDS ORDERED: Sugammadex Sodium 200 MG/2 ML VIAL IV ONE (15:00)
[2021-10-25] MEDS ORDERED: Albumin Human 5% 12.5 GM/250 ML IV.SOLN IVPB ONE (16:20)
[2021-10-25] MEDS ORDERED: Ondansetron 4 MG/2 ML VIAL IVP ONE (16:20)
[2021-10-25] MEDS ORDERED: Albumin Human 5% 12.5 GM/250 ML IV.SOLN ONE (16:24)
[2021-10-25] MEDS ORDERED: Naloxone 0.4 MG/ML INJ IVP PRN (17:50)
[2021-10-25] MEDS: 0.9 % Sodium Chloride 1,000 ML IVC SCH (18:17)
[2021-10-25] MEDS: *HR* Metoprolol 5 MG/5 ML VIAL IVP SCH (18:17)
[2021-10-25] MEDS: CeFAZolin 2 GM/120 ML BAG IVPB SCH (19:57)
[2021-10-26] MEDS: *HR* Metoprolol 5 MG/5 ML VIAL IVP SCH ×4 (00:51→16:57)
[2021-10-26] MEDS: 0.9 % Sodium Chloride 1,000 ML IVC SCH ×2 (03:50→14:18)
[2021-10-26 04:42] LABS: Basophils % 0.1 %; Hematocrit 29.1 % (35.3-44.9); Immature Granulocytes % 0.1 % (0-4); Lymphocytes # 0.9 K/mcL (0.6-4.6); Lymphocytes % 12.4 %; Mean Corpuscular HGB Conc 30.9 g/dL (31.6-35.5); Mean Corpuscular Hemoglobin 25.7 pg (28.0-33.3); Mean Corpuscular Volume 83.1 fL (83.0-100.0); Mean Platelet Volume 9.6 fL (9.4-12.4); Monocytes # 0.5 K/mcL (0.0-1.3); Monocytes % 7.2 %; Neutrophils # 5.5 K/mcL (1.6-8.9); Platelet Count 161 K/mcL (140-400); Segmented Neutrophils % 80.2 %; White Blood Count 6.9 K/mcL (4.3-11.1)
[2021-10-26 04:49] LABS: BUN/Creatinine Ratio 14 (6-26); Blood Urea Nitrogen 14 mg/dL (8-23); Calcium 7.2 mg/dL (8.6-10.3); Carbon Dioxide 22 mEq/L (23-29); Chloride 110 mEq/L (98-107); Glucose 121 mg/dL (70-105); Osmolality,Calculated 288 (280-300); Potassium 4.2 mEq/L (3.5-5.1); Sodium 138 mEq/L (136-145); eGFR For African Americans > 60 (> 60); eGFR For Non-African Americans 55 (> 60)
[2021-10-26] MEDS: CeFAZolin 2 GM/120 ML BAG IVPB SCH (05:09)
[2021-10-26] MEDS ORDERED: *HR* Heparin 5,000 UNIT/ML VIAL SQ SCH (06:00)
[2021-10-26] MEDS: *HR* Heparin 5,000 UNIT/ML VIAL SQ SCH ×2 (06:30→16:58)
[2021-10-26] MEDS: Ketorolac 30 MG/ML VIAL IVP SCH (16:58)
[2021-10-27] MEDS: Ketorolac 30 MG/ML VIAL IVP SCH ×4 (00:14→17:08)
[2021-10-27] MEDS: 0.9 % Sodium Chloride 1,000 ML IVC SCH ×2 (00:15→10:49)
[2021-10-27] MEDS: *HR* Metoprolol 5 MG/5 ML VIAL IVP SCH ×4 (00:15→17:09)
[2021-10-27 05:24] LABS: Basophils % 0.3 %; Hematocrit 27.5 % (35.3-44.9); Hemoglobin 8.4 g/dL (11.5-15.4); Immature Granulocytes % 0.8 % (0-4); Lymphocytes # 1.1 K/mcL (0.6-4.6); Lymphocytes % 17.7 %; Mean Corpuscular HGB Conc 30.5 g/dL (31.6-35.5); Mean Corpuscular Hemoglobin 25.5 pg (28.0-33.3); Mean Corpuscular Volume 83.3 fL (83.0-100.0); Mean Platelet Volume 10.5 fL (9.4-12.4); Monocytes # 0.4 K/mcL (0.0-1.3); Monocytes % 5.8 %; Neutrophils # 4.6 K/mcL (1.6-8.9); Platelet Count 136 K/mcL (140-400); Red Cell Distribution Width 15.4 % (11.5-14.5); Segmented Neutrophils % 75.4 %; White Blood Count 6.2 K/mcL (4.3-11.1)
[2021-10-27] MEDS: *HR* Heparin 5,000 UNIT/ML VIAL SQ SCH ×2 (05:35→17:09)
[2021-10-27 05:49] LABS: BUN/Creatinine Ratio 13 (6-26); Blood Urea Nitrogen 9 mg/dL (8-23); Calcium 7.6 mg/dL (8.6-10.3); Carbon Dioxide 22 mEq/L (23-29); Chloride 108 mEq/L (98-107); Glucose 101 mg/dL (70-105); Osmolality,Calculated 281 (280-300); Potassium 3.6 mEq/L (3.5-5.1); Sodium 136 mEq/L (136-145); eGFR For African Americans > 60 (> 60); eGFR For Non-African Americans > 60 (> 60)
[2021-10-27] MEDS: 0.9 % Sodium Chloride 500 ML IVC SCH (14:45)
[2021-10-28] MEDS: Ketorolac 30 MG/ML VIAL IVP SCH ×3 (00:25→11:08)
[2021-10-28] MEDS: *HR* Metoprolol 5 MG/5 ML VIAL IVP SCH ×4 (00:26→17:18)
[2021-10-28 04:41] LABS: Basophils % 0.3 %; Eosinophils % 0.3 %; Hematocrit 25.5 % (35.3-44.9); Hemoglobin 7.9 g/dL (11.5-15.4); Immature Granulocytes % 0.8 % (0-4); Lymphocytes # 1.6 K/mcL (0.6-4.6); Lymphocytes % 24.8 %; Mean Corpuscular Hemoglobin 25.7 pg (28.0-33.3); Mean Corpuscular Volume 83.1 fL (83.0-100.0); Mean Platelet Volume 9.3 fL (9.4-12.4); Monocytes # 0.4 K/mcL (0.0-1.3); Monocytes % 6.4 %; Neutrophils # 4.2 K/mcL (1.6-8.9); Nucleated Red Blood Cells 0.5 /100 WBC (0); Platelet Count 131 K/mcL (140-400); Red Blood Count 3.07 M/mcL (3.82-4.97); Red Cell Distribution Width 15.6 % (11.5-14.5); Segmented Neutrophils % 67.4 %; White Blood Count 6.3 K/mcL (4.3-11.1)
[2021-10-28 04:57] LABS: BUN/Creatinine Ratio 15 (6-26); Blood Urea Nitrogen 10 mg/dL (8-23); Calcium 7.8 mg/dL (8.6-10.3); Carbon Dioxide 23 mEq/L (23-29); Chloride 107 mEq/L (98-107); Glucose 90 mg/dL (70-105); Osmolality,Calculated 281 (280-300); Potassium 3.4 mEq/L (3.5-5.1); Sodium 136 mEq/L (136-145); eGFR For African Americans > 60 (> 60); eGFR For Non-African Americans > 60 (> 60)
[2021-10-28] MEDS: *HR* Heparin 5,000 UNIT/ML VIAL SQ SCH (06:13)
[2021-10-28] MEDS: 0.9 % Sodium Chloride 500 ML IVC SCH (11:10)
[2021-10-28] MEDS: Apixaban 5 MG TABLET PO SCH ×2 (15:12→19:27)
[2021-10-28] MEDS: Gabapentin 400 MG CAPSULE PO SCH ×2 (15:12→19:28)
[2021-10-29] MEDS: *HR* Metoprolol 5 MG/5 ML VIAL IVP SCH ×5 (00:25→23:44)
[2021-10-29] MEDS: Gabapentin 400 MG CAPSULE PO SCH ×3 (08:26→20:42)
[2021-10-29] MEDS: Apixaban 5 MG TABLET PO SCH ×2 (08:26→20:42)
[2021-10-29] MEDS ORDERED: Furosemide 20 MG/2 ML VIAL IVP ONE (16:26)
[2021-10-29] MEDS ORDERED: methocarbamoL 750 MG TABLET PO PRN (16:29)
[2021-10-29] MEDS ORDERED: *HR* OxyCODONE Immed Rel 5 MG TABLET PO PRN ×2 (16:30)
[2021-10-29] MEDS ORDERED: Acetaminophen 325 MG TABLET PO PRN ×2 (16:30)
[2021-10-29] MEDS ORDERED: *HR* HYDROcodone/Acet 5/325 mg TABLET PO PRN ×2 (16:30)
[2021-10-29] MEDS ORDERED: Ezetimibe [Zetia] 10 MG Tablet PO SCH (21:00)
[2021-10-30 03:47] VITALS: O2SAT 98
[2021-10-30 04:59] LABS: Basophils % 0.6 %; Eosinophils # 0.1 K/mcL (0.0-0.6); Eosinophils % 1.9 %; Hematocrit 27.3 % (35.3-44.9); Hemoglobin 8.2 g/dL (11.5-15.4); Immature Granulocytes % 0.8 % (0-4); Lymphocytes # 1.4 K/mcL (0.6-4.6); Lymphocytes % 26.5 %; Mean Corpuscular Hemoglobin 25.1 pg (28.0-33.3); Mean Corpuscular Volume 83.5 fL (83.0-100.0); Mean Platelet Volume 10.2 fL (9.4-12.4); Monocytes # 0.4 K/mcL (0.0-1.3); Neutrophils # 3.4 K/mcL (1.6-8.9); Nucleated Red Blood Cells 0.6 /100 WBC (0); Platelet Count 200 K/mcL (140-400); Red Blood Count 3.27 M/mcL (3.82-4.97); Red Cell Distribution Width 16.4 % (11.5-14.5); Segmented Neutrophils % 63.2 %; White Blood Count 5.3 K/mcL (4.3-11.1)
[2021-10-30] MEDS: *HR* Metoprolol 5 MG/5 ML VIAL IVP SCH ×2 (05:02→13:56)
[2021-10-30 05:20] LABS: BUN/Creatinine Ratio 17 (6-26); Blood Urea Nitrogen 13 mg/dL (8-23); Carbon Dioxide 23 mEq/L (23-29); Chloride 109 mEq/L (98-107); Glucose 103 mg/dL (70-105); Osmolality,Calculated 282 (280-300); Potassium 3.4 mEq/L (3.5-5.1); Sodium 136 mEq/L (136-145); eGFR For African Americans > 60 (> 60); eGFR For Non-African Americans > 60 (> 60)
[2021-10-30] MEDS: Gabapentin 400 MG CAPSULE PO SCH ×2 (07:39→14:10)
[2021-10-30] MEDS: Apixaban 5 MG TABLET PO SCH (07:40)
[2021-10-30] MEDS ORDERED: Loratadine 10 MG TABLET PO SCH (09:00)
[2021-10-30 10:33] VITALS: BP 139/58; TEMP 98.6
[2021-10-30 11:49] VITALS: PULSE 86
== END 2021-10-30 15:01 | disposition home or self-care (01) | DRG 271 ==
LOC: SAMDAY 06:44 → 2NNU 18:07
PROVIDERS: ADMIT Surgery; ATTEND Surgery